=== PATIENT | female | born 1970 | race Caucasian/White ===

== ENCOUNTER 2017-07-15 10:30 | Day surgery (SDC) | payer BC, OTHER ==
[2017-07-15] MEDS ORDERED: Iopamidol 408 MG/ML 50 ML SDV ONE (11:30)
[2017-07-15] MEDS ORDERED: Betamethasone Acetate/Betamethasone Sod Phosphate 30 MG/5 ML MDV ONE (11:30)
[2017-07-15] MEDS ORDERED: Ropivacaine 0.5% 5 MG/ML 30 ML SDV ONE (11:30)
[2017-07-15] MEDS ORDERED: Lidocaine 2% 5 ML SDV ONE (11:30)
--- NOTE | 2017-07-15 20:23 | OR ---
SURGEON: Rachelle Davis D.O. DATE OF PROCEDURE: OR STAFF PRESENT: 1. Ángel Anthony RN. 2. Yoanna Rosas RN. PONY EDGER: RT Rosie. WOUND CLASSIFICATION: I. PREOPERATIVE DIAGNOSES: 1. Lumbar degenerative disk disease. 2. Lumbar radiculopathy. 3. Lumbar spondylosis. POSTOPERATIVE DIAGNOSES: 1. Lumbar degenerative disk disease. 2. Lumbar spondylosis. 3. Lumbar radiculopathy. 4. Lumbosacral transitional vertebrae. PROCEDURES PERFORMED: 1. Caudal epidural steroid injection. 2. Fluoroscopic guidance for needle placement. 3. Local with oral Valium for sedation. SCREENING QUESTIONS: The patient answered "no" to all of the following questions: 1. Are you allergic to latex? 2. Do you have a bleeding disorder? 3. Do you have any current local or systemic infections? 4. Are you taking any anti-inflammatories or blood thinners? 5. Do you have any joint replacements, heart valve replacements, or a pacemaker? DESCRIPTION OF PROCEDURE: The patient had the procedure thoroughly explained including all possible risks, benefits and alternatives. Consent was signed in my clinic indicating understanding and willingness to proceed. The patient presented to [facility] and was escorted to the dressing room to disrobe and change into a hospital gown. Preoperative vital signs were taken and stable. The patient reported that Valium was taken prior to the procedure. The patient was brought back to the procedure room and placed in the prone position on the procedure room table. A pillow was placed under the hips in order to flatten the lumbar lordosis. The back was prepped with ChloraPrep and sterilely draped. All personnel in the operating room were dressed in appropriate attire including surgical scrubs, head and shoe covers. This was to ensure sterility while in the treatment room. During the time fluoroscopy was in use, all personnel in the operating room wore lead zamudio with thyroid collars. Sterile technique was used throughout the procedure. The patient was awake and conversant throughout the procedure. There was no evidence of infection at the site of needle insertion. Skeletal landmarks were identified under fluoroscopy for the caudalepidural. Skin was anesthetized with 2% lidocaine with a sterile 27-gauge 1.5 inch needle. Then a 20-gauge Tuohy epidural needle was placed in the epidural space with loss of resistance technique under fluoroscopic guidance. No heme, cerebrospinal fluid, or paresthesias were noted. Isovue-200 contrast dye was injected in 0.2 cubic centimeter increments and seen to outline the epidural space in both AP and lateral views. There was no intravascular flow pattern observed under live fluoroscopy. Then 12 milligrams of Celestone and then 3 cc 0.5% ropivicaine, 3cc was slowly injected after negative aspiration. The patient tolerated the procedure well. Vital signs were stable during and after the procedure. The staff escorted the patient to the recovery area and the patient was released in stable condition after a brief stay in the recovery room monitored by the nurse. The patient was given both oral and written discharge and follow up instructions with recommendation to follow up given for 2-3 weeks. The patient voiced understanding including understanding of those signs and symptoms that would require emergency care. The patient knows how to contact the office if there are any additional problems or questions in the meantime. PREOPERATIVE PAIN: 6-7/10. POSTOPERATIVE PAIN: 3-4/10. FOLLOWUP: Follow up in the Pain Clinic in 1 month. TASHA / BETH /[id number] BETHANY
== END 2017-07-15 13:43 ==
LOC: MW.SDS 10:30
PROVIDERS: ATTEND Anesthesiology
DX: G89.4 Chronic pain syndrome (principal); M51.16 Intervertebral disc disorders with radiculopathy, lumbar region; M47.26 Other spondylosis with radiculopathy, lumbar region; M96.1 Postlaminectomy syndrome, not elsewhere classified; J44.9 Chronic obstructive pulmonary disease, unspecified; F32.9 Major depressive disorder, single episode, unspecified; F17.210 Nicotine dependence, cigarettes, uncomplicated; Z88.8 Allergy status to other drugs, medicaments and biological substances; Z79.891 Long term (current) use of opiate analgesic; Z79.899 Other long term (current) drug therapy; Z98.890 Other specified postprocedural states; Z00.00 Encounter for general adult medical examination without abnormal findings; M54.5 Low back pain; G89.29 Other chronic pain
CPT/HCPCS: 62323; 81025; J0702; J2795; Q9966

== ENCOUNTER → 2017-08-14 | Day surgery (SDC) | payer MEDICARE, BC ==
[~2017-08-14] MED LIST: Betamethasone Acetate/Betamethasone Sod Phosphate 30 MG/5 ML MDV ONE; Iopamidol 408 MG/ML 50 ML SDV ONE; Lidocaine 2% 5 ML SDV ONE; Ropivacaine 0.5% 5 MG/ML 30 ML SDV ONE
--- NOTE | 2017-08-14 20:02 | OR ---
SURGEON: Rachelle Davis D.O. DATE OF PROCEDURE: 08/14/2017 OR STAFF PRESENT: 1. Tammy Walker RN. 2. Letha Izaguirre RN. 3. Itz Velez RT. WOUND CLASSIFICATION: I. PREOPERATIVE DIAGNOSES: 1. Lumbar degenerative disk disease. 2. Chronic low back pain. 3. Spinal stenosis. 4. Lumbar radiculopathy. POSTOPERATIVE DIAGNOSES: 1. Lumbar degenerative disk disease. 2. Chronic low back pain. 3. Spinal stenosis. 4. Lumbar radiculopathy. PROCEDURES PERFORMED: 1. Caudal epidural steroid injection. 2. Fluoroscopic guidance for needle placement. 3. Local with oral Valium for sedation. SCREENING QUESTIONS: The patient answered "no" to all of the following questions: 1. Are you allergic to latex? 2. Do you have a bleeding disorder? 3. Do you have any current local or systemic infections? 4. Are you taking any anti-inflammatories or blood thinners? 5. Do you have any joint replacements, heart valve replacements, or a pacemaker? DESCRIPTION OF PROCEDURE: The patient had the procedure thoroughly explained including all possible risks, benefits and alternatives. Consent was signed in my clinic indicating understanding and willingness to proceed. The patient presented to [facility] and was escorted to the dressing room to disrobe and change into a hospital gown. Preoperative vital signs were taken and stable. The patient reported that Valium was taken prior to the procedure. The patient was brought back to the procedure room and placed in the prone position on the procedure room table. A pillow was placed under the hips in order to flatten the lumbar lordosis. The back was prepped with ChloraPrep and sterilely draped. All personnel in the operating room were dressed in appropriate attire including surgical scrubs, head and shoe covers. This was to ensure sterility while in the treatment room. During the time fluoroscopy was in use, all personnel in the operating room wore lead zamudio with thyroid collars. Sterile technique was used throughout the procedure. The patient was awake and conversant throughout the procedure. There was no evidence of infection at the site of needle insertion. Skeletal landmarks were identified under fluoroscopy for the caudal epidural. Skin was anesthetized with 2% lidocaine with a sterile 27-gauge 1.5 inch needle. Then a 20-gauge Tuohy epidural needle was placed in the epidural space with loss of resistance technique under fluoroscopic guidance. No heme, cerebrospinal fluid, or paresthesias were noted. Isovue-200 contrast dye was injected in 0.2 cubic centimeter increments and seen to outline the epidural space in both AP and lateral views. There was no intravascular flow pattern observed under live fluoroscopy. Then 12 milligrams of Celestone was slowly injected after negative aspiration. The patient tolerated the procedure well. Vital signs were stable during and after the procedure. The staff escorted the patient to the recovery area and the patient was released in stable condition after a brief stay in the recovery room monitored by the nurse. The patient was given both oral and written discharge and follow up instructions with recommendation to follow up given for 2-3 weeks. The patient voiced understanding including understanding of those signs and symptoms that would require emergency care. The patient knows how to contact the office if there are any additional problems or questions in the meantime. PREOPERATIVE PAIN: 5+/10. POSTOPERATIVE PAIN: Zero. FOLLOWUP: Follow up in the Pain Clinic in 3 weeks. TASHA / BETH /[id number] BETHANY
== END ==
LOC: MW.SDS 11:59
PROVIDERS: ATTEND Anesthesiology
DX: M51.16 Intervertebral disc disorders with radiculopathy, lumbar region (principal); M48.00 Spinal stenosis, site unspecified
CPT/HCPCS: 62323; J0702; J2795; Q9966

== ENCOUNTER 2018-06-15 06:54 | Day surgery (SDC) | payer MEDICARE, BC, OTHER ==
[~2018-06-15 06:54] MED LIST changes: -Betamethasone Acetate/Betamethasone Sod Phosphate 30 MG/5 ML MDV ONE; -Iopamidol 408 MG/ML 50 ML SDV ONE; -Lidocaine 2% 5 ML SDV ONE; -Ropivacaine 0.5% 5 MG/ML 30 ML SDV ONE; +Sodium Chloride 0.9% 1,000 ML IV SCH; +Sodium Chloride 0.9% 10 ML Syringe FLUSH PRN; +Sodium Chloride 0.9% 2.5 ML Syringe FLUSH PRN
[2018-06-15] MEDS ORDERED: ceFAZolin 2 GM in Premix Bag 1 BAG IV ONE (07:00)
[2018-06-15] MEDS ORDERED: Propofol 200 MG/20 ML SDV ONE (07:15)
[2018-06-15] MEDS ORDERED: fentaNYL 100 MCG/2 ML SDV ONE (07:15)
[2018-06-15] MEDS ORDERED: Midazolam 1 MG/ML 2 ML SDV ONE (07:15)
[2018-06-15] MEDS ORDERED: Ondansetron 4 MG/2 ML SDV ONE (07:15)
--- NOTE | 2018-06-15 07:22 | PCM.PREANE ---
Preanesthetic Assessment - Anesthesia/Transfusion/Family Hx Anesthesia History: Prior Anesthesia Without Reaction Other Type of Anesthesia Reaction Comment: "did not get me all the out for my C/ section" Family History of Anesthesia Reaction: No Transfusion History: No Prior Transfusion(s) Intubation History: Unknown - Review of Systems General: No Symptoms Pulmonary: No Symptoms Cardiovascular: No Symptoms Gastrointestinal: No Symptoms Neurological: No Symptoms Other: Reports: None - Physical Assessment Height: 1.66 m Weight: 83.461 kg ASA Class: 2 Mental Status: Alert & Oriented x3 Airway Class: Mallampati = 2 Dentition: Reports: Normal Dentition Thyro-Mental Finger Breadths: 3 Mouth Opening Finger Breadths: 2 ROM/Head Extension: Limited/Partial Lungs: Clear to Auscultation, Normal Respiratory Effort Cardiovascular: Regular Rate, Regular Rhythm - Allergies Allergies/Adverse Reactions: Allergies Allergy/AdvReac Type Severity Reaction Status Date / Time tramadol Allergy Hives Verified 06/11/18 09:05 - Blood Blood Available: No - Anesthesia Plan Pre-Op Medication Ordered: None - Acknowledgements Anesthesia Type Planned: General Anesthesia Pt an Appropriate Candidate for the Planned Anesthesia: Yes Alternatives and Risks of Anesthesia Discussed w Pt/Guardian: Yes Pt/Guardian Understands and Agrees with Anesthesia Plan: Yes PreAnesthesia Questionnaire HEENT History: Reports: None Cardiovascular History: Reports: Hypertension Respiratory History: Reports: COPD (mild), Other (See Below) (lung nodule discovered at [facility] 03/16, to be folloewd by x-ray in few months) Gastrointestinal History: Reports: GERD Genitourinary History: Reports: None 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: , Other (See Below) Other OB/BYN History: ETOPx2 Musculoskeletal History: Reports: Arthritis, Back Pain, Chronic, Neck Pain, Chronic Neurological History: Reports: None Psychiatric History: Reports: Anxiety, Depression Endocrine/Metabolic History: Reports: Obesity/BMI 30+ - Past Surgical History Head Surgeries/Procedures: Reports: None HEENT Surgical History: Reports: Oral Surgery GI Surgical History: Reports: Cholecystectomy Female Surgical History: Reports: Breast Biopsy, Section Neurological Surgical History: Reports: Lumbar Spine Other Neurological Surgeries/Procedures: spinal fusion x2, '14, '16 - SUBSTANCE USE Smoking Status *Q: Current Every Day Smoker (1/2 - 1 ppd) Tobacco Use Within Last Twelve Months: Cigarettes Recreational Drug Use History: No - HOME MEDS Home Medications: Home Meds Cyclobenzaprine HCl 10 mg PO TID PRN 06/11/18 [History] Hydrocodone/Acetaminophen [[place] 10-325 Tablet] 1 tab PO ASDIRECTED PRN [History] Lisinopril 10 mg PO BEDTIME 06/11/18 [History] Nicotine Polacrilex [Nicorette] 1 dose CHEW ASDIRECTED PRN 06/11/18 [History] Polyethylene Glycol 3350 [Miralax] 1 dose PO ASDIRECTED PRN 06/11/18 [History] Venlafaxine HCl [Venlafaxine HCl ER] 3 tab PO DAILY 06/11/18 [History] - CURRENT (IN HOUSE) MEDS Current Meds: Current Medications Cefazolin Sodium/Dextrose 2 gm (/ Premix) 50 mls @ 100 mls/hr IV ONETIME ONE Stop: 06/15/18 07:29 Sodium Chloride (Normal Saline) 1,000 mls @ 125 mls/hr IV ASDIRECTED FROY Sodium Chloride (Saline Flush) 10 ml FLUSH ASDIRECTED PRN PRN Reason: Keep Vein Open Sodium Chloride (Saline Flush) 2.5 ml FLUSH ASDIRECTED PRN PRN Reason: Keep Vein Open Discontinued Medications Fentanyl (Sublimaze) Confirm Administered Dose 100 mcg .ROUTE .STK-MED ONE Stop: 06/15/18 07:16 Lidocaine HCl (Xylocaine-Mpf 1%) Confirm Administered Dose 5 mls @ as directed .ROUTE .STK-MED ONE Stop: 06/15/18 07:16 Midazolam HCl (Versed 1 Mg/Ml) Confirm Administered Dose 2 mg .ROUTE .STK-MED ONE Stop: 06/15/18 07:16 Ondansetron HCl (Zofran) Confirm Administered Dose 4 mg .ROUTE .STK-MED ONE Stop: 06/15/18 07:16 Propofol (Diprivan 20 Ml) Confirm Administered Dose 200 mg .ROUTE .STK-MED ONE Stop: 06/15/18 07:16
[2018-06-15] MEDS ORDERED: ceFAZolin/Dextrose,Iso-Osmotic 2 GM/50 ML Duplex Bag IV ONE (08:15)
[2018-06-15] MEDS ORDERED: Ketorolac 15 MG/ML SDV IVPUSH ONE (09:06)
[2018-06-15] MEDS ORDERED: Ketorolac 30 MG/ML SDV ONE (09:09)
--- NOTE | 2018-06-15 09:11 | PCM.OPNOTE ---
- General Post-Op/Procedure Note Date of Surgery/Procedure: 06/15/18 Operative Procedure(s): Endometrial ablation Findings: 8 weeks sized uterus, sounded to 9cm. Normal appearing cervix. No adnexal masses palpable Pre Op Diagnosis: Menorrhagia Post-Op Diagnosis: Same Anesthesia Technique: General LMA Primary Surgeon: Lorraine Will Anesthesia Provider: Zaira Medina Fluid Replacement, Intraop: 500 EBL in mLs: 0 Complications: None Condition: Good
--- NOTE | 2018-06-15 09:18 | PCM.POSTAN ---
POST ANESTHESIA ASSESSMENT - MENTAL STATUS Mental Status: Alert, Oriented - RESPIRATORY Respiratory Status: Respiratory Rate WNL, Airway Patent, O2 Saturation Stable - CARDIOVASCULAR CV Status: Pulse Rate WNL, Blood Pressure Stable - GASTROINTESTINAL GI Status: No Symptoms - PAIN Pain Score: 1 - POST OP HYDRATION Hydration Status: Adequate & Stable - OBSERVATIONS Free Text/Narrative:: no anesthesia problems
[2018-06-15] MEDS ORDERED: Acetaminophen/oxyCODONE 325-7.5 MG Tab PO ONE (09:57)
[2018-06-15] MEDS: fentaNYL 100 MCG/2 ML SDV IVPUSH PRN ×2 (10:06→10:47)
[2018-06-15] MEDS ORDERED: Acetaminophen/oxyCODONE 325-5 MG Tab PO ONE (10:30)
[2018-06-15 14:21] VITALS: BP 175/98
--- NOTE | 2018-06-15 16:21 | OR ---
SURGEON: Lorraine Will MD DATE OF PROCEDURE: PREOPERATIVE DIAGNOSIS: Menorrhagia. POSTOPERATIVE DIAGNOSIS: Menorrhagia. PROCEDURE: Endometrial ablation with Samantha. ANESTHESIA: General LMA. ESTIMATED BLOOD LOSS: None. FINDINGS: Mobile, anteverted uterus 8 weeks size, sounded to 9 cm. No cervical lesions or palpable adnexal masses. COMPLICATIONS: None. DISPOSITION: Stable to recovery room. BRIEF HISTORY: The patient is a 47-year-old lady with a history of irregular menstrual cycles with heavy periods. Evaluation in the office was negative including a pelvic sonogram and benign proliferative endometrial biopsy on Pipelle sampling. She had a recent Pap smear, which was consistent with endometrial tissue and colposcopy-directed biopsies was consistent with chronic cervicitis, no dysplasia was noted. After extensive discussion with the patient, on various management for menorrhagia, she opted to have an endometrial ablation. The risks were discussed with her including but not limited to bleeding, infection and uterine injury. She understands that ablation does not provide a contraception and has an increased risk of masking of further endometrial premalignant or malignant pathologies. After understanding these risks, she opted to proceed and an appropriate consent was obtained. DESCRIPTION OF PROCEDURE: The patient was taken to the operating room where induction of general anesthesia was performed without difficulty. After adequate level of anesthesia, she was placed in dorsal lithotomy position, prepped and draped in usual sterile fashion for vaginal surgery. The bladder was emptied. Examination under anesthesia revealed the aforementioned findings. A bivalve speculum was placed in the vagina and the anterior lip of the cervix was grabbed with an Allis clamp. The uterus was sounded to a depth of 9 cm. The os was serially dilated up to #8 Hegar dilator. The Samantha machine was then set up and primed according to the complex director's guidelines. Subtracting the cervical length from the uterine length, the Samantha handpiece was then set at [address] in [address]. The handpiece was then gently inserted into the endometrial cavity. Once the tip reached the uterine fundus, it was slightly withdrawn and handpiece was deployed. The opening array indicator was noted to be in the green zone. The cervical sealing balloon was then inflated and the uterine integrity test was successful. The ablation cycle was then completed for a total of 120 seconds. The handpiece was then removed. The instruments were then removed from the patient's vagina. The site of the Allis clamp on the cervix was noted to be hemostatic. The patient was taken to the recovery room in stable condition. MERCY CAMPOS /[id number] MTDD
== END 2018-06-15 12:05 | disposition home or self-care (01) ==
LOC: MW.SDS 06:54
PROVIDERS: ATTEND Obstetrics & Gynecology
DX: N92.1 Excessive and frequent menstruation with irregular cycle (principal); I10 Essential (primary) hypertension; J44.9 Chronic obstructive pulmonary disease, unspecified; E66.9 Obesity, unspecified; Z68.30 Body mass index [BMI] 30.0-30.9, adult; F17.210 Nicotine dependence, cigarettes, uncomplicated; K21.9 Gastro-esophageal reflux disease without esophagitis; F41.9 Anxiety disorder, unspecified; F32.9 Major depressive disorder, single episode, unspecified; Z79.899 Other long term (current) drug therapy; Z88.5 Allergy status to narcotic agent
CPT/HCPCS: 36415; 58353; 81025; 85027; A9270; J0690; J1885; J2250; J2405; J2704; J3010; J7040

== ENCOUNTER 2019-01-19 08:07 | Day surgery (SDC) | payer MEDICARE, BC, OTHER ==
[~2019-01-19 08:07] MED LIST changes: +Lactated Ringers 1,000 ML IV SCH; -Sodium Chloride 0.9% 1,000 ML IV SCH; +Sodium Chloride 0.9% 10 ML SDV IV PRN
--- NOTE | 2019-01-19 09:35 | PCM.PREANE ---
Preanesthetic Assessment - Anesthesia/Transfusion/Family Hx Anesthesia History: Prior Anesthesia Without Reaction Other Type of Anesthesia Reaction Comment: states "they did not put me all the way out for my c/section" Transfusion History: No Prior Transfusion(s) Intubation History: Unknown - Review of Systems General: No Symptoms Pulmonary: No Symptoms Cardiovascular: No Symptoms Gastrointestinal: No Symptoms Neurological: No Symptoms - Physical Assessment NPO Status Date: 01/18/19 Height: 1.63 m Weight: 87.997 kg ASA Class: 2 Mental Status: Alert & Oriented x3 Dentition: Reports: Normal Dentition ROM/Head Extension: Limited/Partial Lungs: Clear to Auscultation, Normal Respiratory Effort Cardiovascular: Regular Rate, Regular Rhythm - Lab Values: Laboratory Last Values Urine HCG, Qual NEGATIVE (NEGATIVE) 01/19/19 08:40 - Allergies Allergies/Adverse Reactions: Allergies Allergy/AdvReac Type Severity Reaction Status Date / Time tramadol Allergy Hives Verified 01/13/19 11:21 - Acknowledgements Anesthesia Type Planned: MAC Pt an Appropriate Candidate for the Planned Anesthesia: Yes Alternatives and Risks of Anesthesia Discussed w Pt/Guardian: Yes Pt/Guardian Understands and Agrees with Anesthesia Plan: Yes PreAnesthesia Questionnaire HEENT History: Reports: None Cardiovascular History: Reports: Hypertension Respiratory History: Reports: COPD, Other (See Below) Other Respiratory History: "start of COPD" Gastrointestinal History: Reports: None Genitourinary History: Reports: None 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: , Other (See Below) Other OB/BYN History: ETOPx2, C/S x2 Musculoskeletal History: Reports: Arthritis, Back Pain, Chronic (lumbar back pain 5/10), Neck Pain, Chronic (preop pain score 3/10) Neurological History: Reports: None Psychiatric History: Reports: Anxiety, Depression Endocrine/Metabolic History: Reports: Obesity/BMI 30+ Hematologic History: Reports: None Immunologic History: Reports: None Oncologic (Cancer) History: Reports: None Dermatologic History: Reports: None - Past Surgical History Head Surgeries/Procedures: Reports: None HEENT Surgical History: Reports: Oral Surgery Cardiovascular Surgical History: Reports: None Respiratory Surgical History: Reports: None GI Surgical History: Reports: Cholecystectomy Female Surgical History: Reports: Breast Biopsy, Section, Endometrial Ablation Endocrine Surgical History: Reports: None Neurological Surgical History: Reports: C-Spine Other Neurological Surgeries/Procedures: neck surgery x2 Musculoskeletal Surgical History: Reports: None Oncologic Surgical History: Reports: Biopsy of Breast Dermatological Surgical History: Reports: None - SUBSTANCE USE Smoking Status *Q: Current Every Day Smoker Tobacco Use Within Last Twelve Months: Cigarettes Days Per Week of Alcohol Use: 0 (occasional etoh) Recreational Drug Use History: No - HOME MEDS Home Medications: Home Meds Cyclobenzaprine HCl 10 mg PO TID PRN 06/11/18 [History] Hydrocodone/Acetaminophen [[place] 10-325 Tablet] 1 tab PO ASDIRECTED PRN [History] Lisinopril 10 mg PO BEDTIME 06/11/18 [History] Polyethylene Glycol 3350 [Miralax] 1 dose PO ASDIRECTED PRN 06/11/18 [History] Venlafaxine HCl [Venlafaxine HCl ER] 3 tab PO DAILY 06/11/18 [History] Diclofenac Sodium [Voltaren 1% Gel] 1 applic TOP ASDIRECTED PRN 01/13/19 [ History] [place] & Stretch 1 spray TOP TID PRN 01/13/19 [History] LORazepam 1 tab PO ASDIRECTED PRN 01/13/19 [History] - CURRENT (IN HOUSE) MEDS Current Meds: Current Medications Lactated Ringer's (Ringers, Lactated) 1,000 mls @ 125 mls/hr IV ASDIRECTED FROY Lactated Ringer's (Ringers, Lactated) 1,000 mls @ 125 mls/hr IV ASDIRECTED FROY Sodium Chloride (Saline Flush) 10 ml FLUSH ASDIRECTED PRN PRN Reason: Keep Vein Open Sodium Chloride (Saline Flush) 2.5 ml FLUSH ASDIRECTED PRN PRN Reason: Keep Vein Open Sodium Chloride (Saline Flush) 10 ml FLUSH ASDIRECTED PRN PRN Reason: Keep Vein Open Sodium Chloride (Saline Flush) 2.5 ml FLUSH ASDIRECTED PRN PRN Reason: Keep Vein Open Sodium Chloride (Normal Saline) 10 ml IV ASDIRECTED PRN PRN Reason: IV Use Sodium Chloride (Saline Flush) 10 ml FLUSH ASDIRECTED PRN PRN Reason: Keep Vein Open Sodium Chloride (Saline Flush) 2.5 ml FLUSH ASDIRECTED PRN PRN Reason: Keep Vein Open Sodium Chloride (Normal Saline) 10 ml IV ASDIRECTED PRN PRN Reason: IV Use
[2019-01-19] MEDS ORDERED: Midazolam 1 MG/ML 2 ML SDV ONE ×2 (09:50→10:07)
[2019-01-19] MEDS ORDERED: Lidocaine 2% 5 ML SDV ONE ×2 (09:50→10:07)
[2019-01-19] MEDS ORDERED: Propofol 200 MG/20 ML SDV ONE ×2 (09:50→10:07)
[2019-01-19] MEDS ORDERED: fentaNYL 100 MCG/2 ML SDV ONE ×2 (09:50→10:07)
[2019-01-19] MEDS ORDERED: Glycopyrrolate 0.2 MG/ML SDV ONE (10:34)
--- NOTE | 2019-01-19 10:47 | PCM.OPNOTE ---
- General Post-Op/Procedure Note Date of Surgery/Procedure: 01/19/19 Operative Procedure(s): diagnostic colonoscopy Findings: sigmoid polyp Pre Op Diagnosis: change in bowel habits Post-Op Diagnosis: sigmoid polyp Anesthesia Technique: MAC Primary Surgeon: Yenni Leonardo Pathology: sigmoid polyp EBL in mLs: 0 Condition: Good
--- NOTE | 2019-01-19 11:11 | PCM.POSTAN ---
POST ANESTHESIA ASSESSMENT - MENTAL STATUS Mental Status: Alert, Oriented - RESPIRATORY Respiratory Status: Respiratory Rate WNL, Airway Patent, O2 Saturation Stable - CARDIOVASCULAR CV Status: Pulse Rate WNL, Blood Pressure Stable - GASTROINTESTINAL GI Status: No Symptoms - OBSERVATIONS Free Text/Narrative:: The patient tolerated the procedure well. There were no apparent anesthetic complications at this time.
--- NOTE | 2019-01-19 11:43 | PCM48HPAN ---
Post Anesthesia Note - EVALUATION WITHIN 48HRS OF ANESTHETIC Vital Signs in Normal Range: Yes Patient Participated in Evaluation: Yes Respiratory Function Stable: Yes Airway Patent: Yes Cardiovascular Function Stable: Yes Hydration Status Stable: Yes Pain Control Satisfactory: Yes Nausea and Vomiting Control Satisfactory: Yes Mental Status Recovered: Yes Resp Rate: 12 - COMMENTS/OBSERVATIONS Free Text/Narrative:: The patient has no complaints at this time, and wants to go home. Discharge to home per criteria.
[2019-01-19 12:51] VITALS: BP 114/53
--- NOTE | 2019-01-19 18:25 | OR ---
SURGEON: YENNI LEONARDO MD DATE OF PROCEDURE: 01/19/2019 PREOPERATIVE DIAGNOSIS: Change in bowel habits. POSTOPERATIVE DIAGNOSIS: Sigmoid colon polyp. PROCEDURE PERFORMED: Diagnostic colonoscopy. ENDOSCOPIST: Yenni Leonardo MD. ANESTHESIA: MAC. INSTRUMENT USED: Olympus colonoscope. EXTENT OF EXAM: To the cecum. PREPARATION: Good. LIMITATIONS: None. INDICATION FOR EXAMINATION: The patient is a 48-year-old female who presents with some changes in her bowel habits. I explained the need for colonoscopy. The patient and I discussed the procedure, expected perioperative course, and risks including bleeding, infection, or damage to surrounding structures including perforation. The patient verbalized understanding and wishes to proceed. PROCEDURE IN DETAIL: The patient was brought into the endoscopy suite and placed in the left lateral decubitus position. A time-out was completed verifying the patient's name, age, date of , allergies, and procedure to be performed. Monitored anesthesia care was induced and continuous oxygen was provided via nasal cannula throughout the procedure. After adequate sedation was achieved, a digital rectal exam was performed. This exam was within normal limits. A well lubricated colonoscope was inserted into the rectum and advanced under direct visualization to the level of the cecum. The cecum was identified by both visual and anatomic landmarks. A photograph was taken of the cecal cap as well as with the scope retroflexed within the cecum. The scope was then straightened out and fully withdrawn while examining the color, texture, anatomy, and integrity of the mucosa from the cecum to the anal canal. The patient was found to have a small polyp within the distal sigmoid colon. This was removed in piecemeal fashion using a cold biopsy forceps. The scope was then brought into the rectum and retroflexed to allow visualization of the anal canal opening. This appeared normal and a photograph was taken. The scope was then straightened out and fully withdrawn. The cecum to anus time was 12 minutes. The patient tolerated the procedure well and was taken to PACU in stable condition. ENDOSCOPIC DIAGNOSIS: Sigmoid colon polyp. RECOMMENDATIONS: Follow up in clinic in 2 weeks. GWEN CAMPOS /[id number]
== END 2019-01-19 11:50 | disposition home or self-care (01) ==
LOC: MW.SDS 08:07
PROVIDERS: ATTEND Surgery
DX: K63.5 Polyp of colon (principal); K62.5 Hemorrhage of anus and rectum; K59.09 Other constipation; I10 Essential (primary) hypertension; J44.9 Chronic obstructive pulmonary disease, unspecified; F41.9 Anxiety disorder, unspecified; F32.9 Major depressive disorder, single episode, unspecified; F17.210 Nicotine dependence, cigarettes, uncomplicated; Z88.5 Allergy status to narcotic agent; Z79.899 Other long term (current) drug therapy
CPT/HCPCS: 45380; 81025; J2001; J2250; J2704; J3010; J3490; J7120; 88305

== ENCOUNTER 2020-04-11 11:27 | Day surgery (SDC) | payer MEDICARE, OTHER ==
[2020-04-11] MEDS ORDERED: Propofol 200 MG/20 ML SDV ONE (12:14)
--- NOTE | 2020-04-11 12:31 | PCM.PREANE ---
Preanesthetic Assessment - Anesthesia/Transfusion/Family Hx Anesthesia History: Prior Anesthesia Reaction Other Type of Anesthesia Reaction Comment: awake during C/S Family History of Anesthesia Reaction: No Transfusion History: No Prior Transfusion(s) Intubation History: Unknown - Review of Systems General: No Symptoms Pulmonary: No Symptoms Cardiovascular: No Symptoms Gastrointestinal: No Symptoms Neurological: No Symptoms Other: Reports: None - Physical Assessment Vital Signs: Last Vital Signs Temp 36.2 C 04/11/20 11:44 Pulse 70 04/11/20 11:44 Resp 16 04/11/20 11:44 BP 156/82 H 04/11/20 11:44 Pulse Ox 96 04/11/20 11:44 Height: 5 ft 5.5 in Weight: 86.636 kg ASA Class: 2 Mental Status: Alert & Oriented x3 Airway Class: Mallampati = 2 Dentition: Reports: Normal Dentition Thyro-Mental Finger Breadths: 3 Mouth Opening Finger Breadths: 3 ROM/Head Extension: Full Lungs: Clear to Auscultation, Normal Respiratory Effort Cardiovascular: Regular Rate, Regular Rhythm - Allergies Allergies/Adverse Reactions: Allergies Allergy/AdvReac Type Severity Reaction Status Date / Time tramadol Allergy Hives Verified 04/07/20 10:13 - Blood Blood Available: No - Anesthesia Plan Pre-Op Medication Ordered: None - Acknowledgements Anesthesia Type Planned: MAC Pt an Appropriate Candidate for the Planned Anesthesia: Yes Alternatives and Risks of Anesthesia Discussed w Pt/Guardian: Yes Pt/Guardian Understands and Agrees with Anesthesia Plan: Yes PreAnesthesia Questionnaire HEENT History: Reports: None Cardiovascular History: Reports: Hypertension Respiratory History: Reports: COPD Other Respiratory History: Very mild, does not take any medications Gastrointestinal History: Reports: Colon Polyp Genitourinary History: Reports: None 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 OB/BYN History: ETOPx2, C/S x2 Musculoskeletal History: Reports: Arthritis, Back Pain, Chronic, Neck Pain, Chronic, Other (See Below) (chronic pain syndrome) Neurological History: Reports: Headaches, Chronic, Other (See Below) Other Neuro History: degenerative disc disease Psychiatric History: Reports: Anxiety, Depression, PTSD Endocrine/Metabolic History: Reports: Obesity/BMI 30+ (BMI 31.3) Hematologic History: Reports: None Immunologic History: Reports: None Oncologic (Cancer) History: Reports: None Dermatologic History: Reports: None - Past Surgical History Head Surgeries/Procedures: Reports: None GI Surgical History: Reports: Cholecystectomy, Colonoscopy Female Surgical History: Reports: Breast Biopsy, Section Other Female Surgeries/Procedures: x2 Neurological Surgical History: Reports: C-Spine, Spinal Fusion Other Neurological Surgeries/Procedures: spinal fusion C2-T1, has hardware - SUBSTANCE USE Smoking Status *Q: Former Smoker Tobacco Use Within Last Twelve Months: Cigarettes Recreational Drug Use History: No - HOME MEDS Home Medications: Home Meds Cyclobenzaprine HCl 10 mg PO TID PRN 06/11/18 [History] Hydrocodone/Acetaminophen [[place] 10-325 Tablet] 1 tab PO ASDIRECTED PRN 06/11/18 [History] Lisinopril 10 mg PO BEDTIME 06/11/18 [History] Diclofenac Sodium [Voltaren 1% Gel] 1 applic TOP ASDIRECTED PRN 01/13/19 [History] Gabapentin [Neurontin] 300 mg PO TID PRN 04/07/20 [History] Venlafaxine HCl [Venlafaxine HCl ER] 37.5 mg PO TID 04/07/20 [History] - CURRENT (IN HOUSE) MEDS Current Meds: Current Medications Lidocaine HCl (Xylocaine-Mpf 1%) 10 ml INJECT ONETIME ONE Stop: 04/11/20 13:01 Discontinued Medications Propofol (Diprivan 20 Ml) Confirm Administered Dose 400 mg .ROUTE .STK-MED ONE Stop: 04/11/20 12:15
[2020-04-11] MEDS ORDERED: Lidocaine 2% 5 ML SDV ONE (12:51)
[2020-04-11] MEDS ORDERED: fentaNYL 100 MCG/2 ML SDV ONE (13:04)
[2020-04-11] MEDS ORDERED: Midazolam 1 MG/ML 2 ML SDV ONE (13:04)
[2020-04-11] MEDS ORDERED: Sodium Chloride 0.9% 20 ML ONE (13:17)
[2020-04-11] MEDS ORDERED: ceFAZolin 1 GM Vial ONE (13:17)
[2020-04-11] MEDS ORDERED: Lactated Ringers 1,000 ML IV SCH (13:45)
[2020-04-11 14:59] VITALS: BP 138/77; PULSE 59
--- NOTE | 2020-04-11 15:04 | PCM48HPAN ---
Post Anesthesia Note - EVALUATION WITHIN 48HRS OF ANESTHETIC Vital Signs in Normal Range: Yes Patient Participated in Evaluation: Yes Respiratory Function Stable: Yes Airway Patent: Yes Cardiovascular Function Stable: Yes Hydration Status Stable: Yes Pain Control Satisfactory: Yes Nausea and Vomiting Control Satisfactory: Yes Mental Status Recovered: Yes Vital Signs: Last Vital Signs Temp 36.0 C L 04/11/20 14:20 Pulse 59 L 04/11/20 14:40 Resp 14 04/11/20 14:40 BP 138/77 04/11/20 14:40 Pulse Ox 99 04/11/20 14:40
--- NOTE | 2020-04-11 15:04 | PCM.POSTAN ---
POST ANESTHESIA ASSESSMENT - MENTAL STATUS Mental Status: Alert - VITAL SIGNS Vital Signs: Last Vital Signs Temp 36.0 C L 04/11/20 14:20 Pulse 59 L 04/11/20 14:40 Resp 14 04/11/20 14:40 BP 138/77 04/11/20 14:40 Pulse Ox 99 04/11/20 14:40 - RESPIRATORY Respiratory Status: Respiratory Rate WNL - CARDIOVASCULAR CV Status: Pulse Rate WNL - GASTROINTESTINAL GI Status: No Symptoms - POST OP HYDRATION Hydration Status: Adequate & Stable
--- NOTE | 2020-04-11 17:04 | OR ---
SURGEON: Rachelle Davis D.O. DATE OF PROCEDURE: 04/11/2020 PRIMARY SURGEON: Rachelle Davis DO ASSISTANTS: OR staff present: 1. Donovan Izaguirre. 2. Tanja Sheikh. ANESTHESIA: Monitored anesthesia care; Donovan Rosa CRNA PREOPERATIVE DIAGNOSES: 1. Chronic lumbar radiculopathy. 2. Chronic neuropathic pain. POSTOPERATIVE DIAGNOSES: 1. Chronic lumbar radiculopathy. 2. Chronic neuropathic pain. PROCEDURE PERFORMED: 1. A [employer] 50 cm, 16 contact electrode spinal cord stimulator trial lead placed to the top of T6 on the left. 2. A [employer] 50 cm, 16 contact electrode spinal cord stimulator lead placed to the top of T6 on the right. 2. Fluoroscopic guidance for needle placement. SCREENING QUESTIONS: The patient answered no to all the following questions: 1. Are you allergic to iodine, Betadine, or latex? 2. Do you have a bleeding disorder? 3. Are you on anti-inflammatories or blood thinners? 4. Are you ? 5. Do you have any current local or systemic infections? 6. Do you have any joint replacements, heart valve replacements or a pacemaker? DESCRIPTION OF PROCEDURE: The patient had the procedure thoroughly explained including risks, benefits, and alternatives. Consent was signed in my clinic indicating understanding and willingness to proceed. The patient presented to [facility] and was escorted to the dressing room to disrobe and change into a hospital gown. Preoperative history and screening were performed by the nurse. Vital signs were taken and stable. The patient was set up with an IV prior to the procedure. The patient was brought back to the procedure room and placed in the prone position on the procedure room table. A pillow was placed under the abdomen in order to flatten the lumbar lordosis. The patient was positioned comfortably and there was no evidence of infection at the sites of needle insertion. The back was prepped with ChloraPrep and sterilely draped. All personnel in the operating room were dressed in appropriate attire including surgical scrubs, head and shoe covers. This was to ensure sterility while in the treatment room. During the time fluoroscopy was in use, all personnel in the operating room wore lead zamudio with thyroid collars. Sterile technique was used during the procedure. Prior to the start of the procedure, prophylactic antibiotic was administered IV. Skeletal landmarks were identified under fluoroscopic guidance. At all insertion sites, the skin and soft tissues were anesthetized with 2% lidocaine preservative-free with a sterile 27-gauge 1-1/2 inch needle. The epidural space was entered with a 14-gauge Tuohy epidural needle with loss-of- resistance technique. Under live fluoroscopic guidance,in both AP and lateral positions, the 16 standard [employer] contact lead electrodes were advanced approximately to the midline at the top of the T6 vertebral body on the left and then the right. No CSF, no heme, no paresthesia were noted. Testing by the neuromodulation clinical specialist revealed appropriate coverage of the patient's normal areas of pain. The leads were then secured to the skin with occlusive dressing. No complications were noted throughout the procedure and vital signs were stable. Then the patient was brought to the recovery room in stable condition. At that time, the patient had additional stimulation patterns programmed which covered all the normal areas of pain. The patient tolerated the procedure well and was released home with postoperative instructions for followup in the clinic. The patient will fill out a pain diary throughout the week of the spinal cord stimulator trial. Additionally, prior to discharge, postoperative instructions were given to the patient and the patient voiced understanding, including understanding of those signs and symptoms that would require emergency care. PREOPERATIVE PAIN: 8/10. POSTOPERATIVE PAIN: 2/10. FOLLOWUP: In the Pain Clinic in 1 day for reprogramming. TASHA / BETH /[id number] BETHANY
== END 2020-04-11 15:00 | disposition home or self-care (01) ==
LOC: MW.SDS 11:27
PROVIDERS: ATTEND Anesthesiology
DX: G89.4 Chronic pain syndrome (principal); M51.16 Intervertebral disc disorders with radiculopathy, lumbar region; M51.17 Intervertebral disc disorders with radiculopathy, lumbosacral region; G62.9 Polyneuropathy, unspecified; M96.1 Postlaminectomy syndrome, not elsewhere classified; J44.9 Chronic obstructive pulmonary disease, unspecified; F32.9 Major depressive disorder, single episode, unspecified; M48.062 Spinal stenosis, lumbar region with neurogenic claudication; Q76.49 Other congenital malformations of spine, not associated with scoliosis; I10 Essential (primary) hypertension; M19.90 Unspecified osteoarthritis, unspecified site; F41.9 Anxiety disorder, unspecified; E66.9 Obesity, unspecified; F43.10 Post-traumatic stress disorder, unspecified; Z88.8 Allergy status to other drugs, medicaments and biological substances; Z79.891 Long term (current) use of opiate analgesic; Z79.899 Other long term (current) drug therapy; Z68.31 Body mass index [BMI] 31.0-31.9, adult; Z98.1 Arthrodesis status; Z87.891 Personal history of nicotine dependence
CPT/HCPCS: 63650; C1778; J0690; J2001; J2250; J2704; J3010; J7120

== ENCOUNTER 2021-05-14 12:14 | Observation (INO) | payer MEDICARE, OTHER ==
[2021-05-14] MEDS ORDERED: Sodium Chloride 0.9% 2.5 ML Syringe FLUSH PRN (12:17)
[2021-05-14] MEDS ORDERED: Sodium Chloride 0.9% 10 ML SDV IV PRN (12:17)
[2021-05-14] MEDS ORDERED: Sodium Chloride 0.9% 10 ML Syringe FLUSH PRN (12:17)
[2021-05-14 13:08] LABS: BLOOD UREA NITROGEN,BUN 15 mg/dL (7.0-18.0); CARBON DIOXIDE,CO2 24.3 mmol/L (21.0-32.0); CHLORIDE,CL 100 mmol/L (98-107); GLUCOSE RANDOM 121 mg/dL (74-106); POTASSIUM,K 4.6 mmol/L (3.5-5.1); SODIUM,NA 136 mmol/L (136-145)
--- NOTE | 2021-05-14 13:15 | CT ---
INDICATION: Acute stroke. TECHNIQUE: After standard noncontrast head CT, high resolution axial CT images acquired through the head and neck following rapid intravenous administration of iodinated contrast. Multiplanar MIPS of cranial and cervical vasculature performed. FINDINGS: Noncontrast head CT: There is no intracranial hemorrhage or fluid collection. The cespedes-white matter differentiation is maintained. The ventricles are of normal morphology. The basal cisterns are clear. CTA head: There is normal filling of the intracranial vasculature; i.e. there is no large vessel occlusion or significant intracranial stenosis. There is no cerebral aneurysm or evidence for vascular malformation. CTA neck: Carotid arteries: There is minor atherosclerotic plaque in the proximal ICA without stenosis. There is a kink in the distal carotid artery on the right, related to tortuosity. There is no significant stenosis by NASCET criteria. There is no evidence for dissection. Vertebral arteries: There is no significant stenosis. There is no evidence for dissection. The soft tissues of the neck are within normal limits. There has been an extensive cervical fusion procedure. The lung apices are clear. IMPRESSION: No acute intracranial abnormality at CT/CTA. No significant carotid or vertebral artery stenosis or dissection. Uche Pittman MD Neurointerventional Radiologist [facility] Please note that all CT scans at this facility use dose modulation, iterative reconstruction, and/or weight-based dosing when appropriate to reduce radiation dose to as low as reasonably achievable. Dictated by Uche Pittman MD @ 05/14/2021 1:13:[address] Uche Pittman @ May 14 2021 1:13PM
[2021-05-14] MEDS ORDERED: Iopamidol 755 MG/ML 500 ML Multipack Bottle IVPUSH STA (13:59)
[2021-05-14] MEDS ORDERED: Acetaminophen/HYDROcodone 325-10 MG Tab PO ONE (14:34)
[2021-05-14] MEDS ORDERED: Gabapentin 300 MG Cap PO ONE (14:34)
[2021-05-14] MEDS ORDERED: Cyclobenzaprine 10 MG Tab PO ONE (14:34)
--- NOTE | 2021-05-14 15:01 | PCM.HP.2 ---
H&P History of Present Illness - General Date of Service: 05/14/21 Admit Problem/Dx: Admission Diagnosis/Problem Admission Diagnosis/Problem TIA, Transient ischemic attack - History of Present Illness Initial Comments - Free Text/Narative: 50-year-old female with a history of hypertension, obesity, COPD presents to the ED complaining of episodes of blurry vision. Last episode started this morning and was associated with tingling in her right arm and leg. Her noticed she was not finishing her sentences and having difficulty with speech. Also complains of a frontal headache for 4 days. She has had double vision episodes since January. She denies loss of vision, dysphagia, difficulty walking or loss of consciousness. No previous history of stroke or TIA. Patient does endorse a history of angina. Denies current chest pain, palpitations, abdominal pain. No anticoagulation use. Risk factors include history of hypertension, angina, hyperlipidemia, smoking history and positive family history of stroke. ER Course: Temperature 96.9. Pulse 86. Blood pressure 183/92. Respiratory rate 20. 98% on room air. WBC 8.97. Hgb 15.7. Platelet 314. INR 0.95. PTT 24.5. Sodium 136. Potassium 4.6. Chloride 100. Bicarb 24.3. BUN 15. Creatinine 0.9. Glucose 121. AST 61. Alk phos 119. Total protein 8.4. TSH 1.59. Urinalysis unremarkable. Neck/head CT angio: No acute intracranial abnormality. No significant carotid or vertebral artery stenosis or dissection. CT head: No intracranial abn ormality. MRI brain pending. Past medical history: HTN, COPD, chronic back pain, obesity, anxiety, depression, PTSD. Denies history of DM. Medications: Lisinopril 10 mg daily. Desvenlafaxine 50 mg daily. Gabapentin 600mg bid prn. Cyclobenzaprine 10 mg TID prn. Voltaren gel. [place] (Hydrocodo ne/Acetaminophen) 10-325 tab bid prn. Chantix 1mg bid. Allergies: Tramadol Past surgical history: Spinal fusion C2-T1 with hardware. Colonoscopy 2019. 16 contact electrode spinal cord stimulator trial lead placed to the top of T6. Family history: Mom had stroke in her 50's. Father with CAD and PR in his 50's. Brother had PR in his 40's. Brain cancer. CHF. COPD. Schizophrenia. Social history: History of smoking 1ppd x 30+ years. Quit this year, recently started on Chantix. Denies alcohol use. Has a medical marijuana card, last used 2 months ago. Lives at home with her . CODE STATUS: Full code. Head Pain Score (Numeric/FACES): 4 - Related Data Allergies/Adverse Reactions: Allergies Allergy/AdvReac Type Severity Reaction Status Date / Time tramadol Allergy Hives Verified 05/14/21 12:23 Home Medications: Home Meds Cyclobenzaprine HCl 10 mg PO TID PRN 06/11/18 [History] Hydrocodone/Acetaminophen [[place] 10-325 Tablet] 1 tab PO ASDIRECTED PRN 06/11/18 [History] Lisinopril 10 mg PO BEDTIME 06/11/18 [History] Diclofenac Sodium [Voltaren 1% Gel] 1 applic TOP ASDIRECTED PRN 01/13/19 [History] Gabapentin [Neurontin] 300 mg PO BID PRN 04/07/20 [History] Venlafaxine HCl [Venlafaxine HCl ER] 50 mg PO TID 04/07/20 [History] Past Medical History HEENT History: Reports: None Cardiovascular History: Reports: Hypertension Respiratory History: Reports: COPD Other Respiratory History: Very mild, does not take any medications Gastrointestinal History: Reports: Colon Polyp Genitourinary History: Reports: None 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 OB/BYN History: ETOPx2, C/S x2 Musculoskeletal History: Reports: Arthritis, Back Pain, Chronic, Neck Pain, Chronic, Other (See Below) Neurological History: Reports: Headaches, Chronic, Other (See Below) Other Neuro History: degenerative disc disease Psychiatric History: Reports: Anxiety, Depression, PTSD Endocrine/Metabolic History: Reports: Obesity/BMI 30+ Hematologic History: Reports: None Immunologic History: Reports: None Oncologic (Cancer) History: Reports: None Dermatologic History: Reports: None - Infectious Disease History Infectious Disease History: Reports: Chicken Pox - Past Surgical History Head Surgeries/Procedures: Reports: None HEENT Surgical History: Reports: Oral Surgery Cardiovascular Surgical History: Reports: None Respiratory Surgical History: Reports: None GI Surgical History: Reports: Cholecystectomy, Colonoscopy Female Surgical History: Reports: Breast Biopsy, Section Other Female Surgeries/Procedures: x2 Endocrine Surgical History: Reports: None Neurological Surgical History: Reports: C-Spine, Spinal Fusion Other Neurological Surgeries/Procedures: spinal fusion C2-T1, has hardware Musculoskeletal Surgical History: Reports: None Oncologic Surgical History: Reports: Biopsy of Breast Dermatological Surgical History: Reports: None Social & Family History - Caffeine Use Caffeine Use: Reports: None - Recreational Drug Use Recreational Drug Use: No H&P Review of Systems - Review of Systems: Review Of Systems: Comprehensive ROS is negative, except as noted in HPI. Exam - Exam Exam: See Below - Vital Signs Vital Signs: Last Vital Signs Temp 96.9 F 05/14/21 12:15 Pulse 62 05/14/21 13:45 Resp 16 05/14/21 13:45 BP 149/84 H 05/14/21 13:45 Pulse Ox 97 05/14/21 13:45 Weight: 204 lb - Exam General: Alert, Oriented, Cooperative HEENT: Hearing Intact, PERRLA Neck: Supple. No: Lymphadenopathy, Carotid Bruit, JVD Lungs: Clear to Auscultation, Normal Respiratory Effort Cardiovascular: Regular Rate, Regular Rhythm GI/Abdominal Exam: Normal Bowel Sounds, Soft, Non-Tender Back Exam: Paraspinal Tenderness, Vertebral Tenderness Extremities: Normal Range of Motion, No Pedal Edema. No: Wandy's Sign Peripheral Pulses: 2+: Dorsalis Pedis (L), Dorsalis Pedis (R) Skin: Warm, Dry Neurological: Cranial Nerves Intact, Reflexes Equal Bilateral, Strength Equal Bilateral, Normal Speech, Normal Tone. No: Focal Deficit Neuro Extensive - Mental Status: Alert, Oriented x3 Neuro Extensive - Motor, Sensory, Reflexes: No: Expressive Aphasia, Facial palsy (L), Facial Palsy (R), Hemeplagia (R), Hemeplagia (L) - Patient Data Lab Results Last 24 hrs: Laboratory Results - last 24 hr 05/14/21 05/14/21 05/14/21 Range/Units 12:16 12:16 12:16 WBC 8.97 (4.0-11.0) K/uL RBC 4.99 (4.30-5.90) M/uL Hgb 15.7 (12.0-16.0) g/dL Hct 45.9 (36.0-46.0) % MCV 92.0 (80.0-98.0) fL MCH 31.5 (27.0-32.0) pg MCHC 34.2 (31.0-37.0) g/dL RDW Std Deviation 45.7 (28.0-62.0) fl RDW Coeff of Mariella 14 (11.0-15.0) % Plt Count 314 (150-400) K/uL MPV 10.50 (7.40-12.00) fL Neut % (Auto) 66.5 (48.0-80.0) % Lymph % (Auto) 22.2 (16.0-40.0) % [place] % (Auto) 6.7 (0.0-15.0) % Eos % (Auto) 3.5 (0.0-7.0) % Baso % (Auto) 1.1 (0.0-1.5) % Neut # (Auto) 6.0 H (1.4-5.7) K/uL Lymph # (Auto) 2.0 (0.6-2.4) K/uL [place] # (Auto) 0.6 (0.0-0.8) K/uL Eos # (Auto) 0.3 (0.0-0.7) K/uL Baso # (Auto) 0.1 (0.0-0.1) K/uL Nucleated RBC % 0.0 /100WBC Nucleated RBCs # 0 K/uL INR 0.95 APTT 24.5 (18.6-31.3) SEC Sodium 136 (136-145) mmol/L Potassium 4.6 (3.5-5.1) mmol/L Chloride 100 (98-107) mmol/L Carbon Dioxide 24.3 (21.0-32.0) mmol/L BUN 15 (7.0-18.0) mg/dL Creatinine 0.9 (0.6-1.0) mg/dL Est Cr Clr Drug Dosing TNP Estimated GFR (MDRD) > 60.0 ml/min Glucose 121 H (74-106) mg/dL Calcium 9.4 (8.5-10.1) mg/dL Total Bilirubin 0.3 (0.2-1.0) mg/dL AST 61 H (15-37) IU/L ALT 22 (14-63) IU/L Alkaline Phosphatase 119 H (46-116) U/L Troponin I < 0.050 (0.000-0.056) ng/mL Total Protein 8.4 H (6.4-8.2) g/dL Albumin 4.2 (3.4-5.0) g/dL Globulin 4.2 H (2.6-4.0) g/dL Albumin/Globulin Ratio 1.0 (0.9-1.6) TSH, Ultra Sensitive 1.59 (0.36-3.74) uIU/mL Urine Color Urine Appearance Urine pH (5.0-8.0) Ur Specific Issue (1.001-1.035) Urine Protein (NEGATIVE) mg/dL Urine Glucose (UA) (NEGATIVE) mg/dL Urine Ketones (NEGATIVE) mg/dL Urine Occult Blood (NEGATIVE) Urine Nitrite (NEGATIVE) Urine Bilirubin (NEGATIVE) Urine Urobilinogen (<2.0) EU/dL Ur Leukocyte Esterase (NEGATIVE) Urine RBC (0-2/HPF) Urine WBC (0-5/HPF) Ur Epithelial Cells (NONE-FEW) Urine Bacteria (NEGATIVE) 05/14/21 Range/Units 12:49 WBC (4.0-11.0) K/uL RBC (4.30-5.90) M/uL Hgb (12.0-16.0) g/dL Hct (36.0-46.0) % MCV (80.0-98.0) fL MCH (27.0-32.0) pg MCHC (31.0-37.0) g/dL RDW Std Deviation (28.0-62.0) fl RDW Coeff of Mariella (11.0-15.0) % Plt Count (150-400) K/uL MPV (7.40-12.00) fL Neut % (Auto) (48.0-80.0) % Lymph % (Auto) (16.0-40.0) % [place] % (Auto) (0.0-15.0) % Eos % (Auto) (0.0-7.0) % Baso % (Auto) (0.0-1.5) % Neut # (Auto) (1.4-5.7) K/uL Lymph # (Auto) (0.6-2.4) K/uL [place] # (Auto) (0.0-0.8) K/uL Eos # (Auto) (0.0-0.7) K/uL Baso # (Auto) (0.0-0.1) K/uL Nucleated RBC % /100WBC Nucleated RBCs # K/uL INR APTT (18.6-31.3) SEC Sodium (136-145) mmol/L Potassium (3.5-5.1) mmol/L Chloride (98-107) mmol/L Carbon Dioxide (21.0-32.0) mmol/L BUN (7.0-18.0) mg/dL Creatinine (0.6-1.0) mg/dL Est Cr Clr Drug Dosing Estimated GFR (MDRD) ml/min Glucose (74-106) mg/dL Calcium (8.5-10.1) mg/dL Total Bilirubin (0.2-1.0) mg/dL AST (15-37) IU/L ALT (14-63) IU/L Alkaline Phosphatase (46-116) U/L Troponin I (0.000-0.056) ng/mL Total Protein (6.4-8.2) g/dL Albumin (3.4-5.0) g/dL Globulin (2.6-4.0) g/dL Albumin/Globulin Ratio (0.9-1.6) TSH, Ultra Sensitive (0.36-3.74) uIU/mL Urine Color YELLOW Urine Appearance CLEAR Urine pH 6.0 (5.0-8.0) Ur Specific Issue <= 1.005 (1.001-1.035) Urine Protein NEGATIVE (NEGATIVE) mg/dL Urine Glucose (UA) NEGATIVE (NEGATIVE) mg/dL Urine Ketones NEGATIVE (NEGATIVE) mg/dL Urine Occult Blood SMALL H (NEGATIVE) Urine Nitrite NEGATIVE (NEGATIVE) Urine Bilirubin NEGATIVE (NEGATIVE) Urine Urobilinogen 0.2 (<2.0) EU/dL Ur Leukocyte Esterase NEGATIVE (NEGATIVE) Urine RBC 0-2 (0-2/HPF) Urine WBC 0-1 (0-5/HPF) Ur Epithelial Cells FEW (NONE-FEW) Urine Bacteria FEW (NEGATIVE) Result Diagrams: 05/14/21 12:16 05/14/21 12:16 Sepsis Event Note - Evaluation Sepsis Screening Result: No Definite Risk - Focused Exam Vital Signs: Vital Signs Temp Pulse Resp BP Pulse Ox 05/14/21 13:45 62 16 149/84 H 97 05/14/21 13:30 60 16 142/82 H 97 05/14/21 13:15 70 16 158/85 H 97 05/14/21 13:02 63 16 165/92 H 98 05/14/21 12:47 69 16 155/89 H 98 05/14/21 12:32 64 16 192/107 H 98 05/14/21 12:15 96.9 F 86 20 183/92 H 98 - Problem List (1) TIA (transient ischemic attack) SNOMED Code(s): 966757347 ICD Code: G45.9 - TRANSIENT CEREBRAL ISCHEMIC ATTACK, UNSPECIFIED Status: Acute Current Visit: Yes (2) Hypertension SNOMED Code(s): 43508514 ICD Code: I10 - ESSENTIAL (PRIMARY) HYPERTENSION Status: Acute Current Visit: Yes Problem List Initiated/Reviewed/Updated: Yes Orders Last 24hrs: Active Orders 24 hr Category Date Time Status Admission Status [Patient Status] [ADT] Stat ADT 05/14/21 14:35 Active Assess Neurological Status [RC] ASDIRECTED Care 05/14/21 12:17 Active Cardiac Monitoring [RC] . DIRECTED Care 05/14/21 12:17 Active EKG Documentation Completion [RC] STAT Care 05/14/21 12:17 Active Height and Weight [RC] UPON Care 05/14/21 12:17 Active Initiate Acute Stroke Protocol [RC] STAT Care 05/14/21 12:17 Active NIH Stroke Scale [RC] ASDIRECTED Care 05/14/21 12:17 Active Oxygen Therapy [RC] ASDIRECTED Care 05/14/21 12:17 Active Vital Signs [RC] Q15M Care 05/14/21 12:17 Active Brain w wo Cont [MR] Stat Exams 05/14/21 14:32 Ordered Sodium Chloride 0.9% [Normal Saline] Med 05/14/21 12:17 Active 10 ml IV ASDIRECTED PRN Sodium Chloride 0.9% [Saline Flush] Med 05/14/21 12:17 Active 10 ml FLUSH ASDIRECTED PRN Sodium Chloride 0.9% [Saline Flush] Med 05/14/21 12:17 Active 2.5 ml FLUSH ASDIRECTED PRN Peripheral IV Insertion Adult [OM.PC] Stat Oth 05/14/21 12:17 Ordered Medication Orders Sodium Chloride (Sodium Chloride 0.9% 10 Ml Syringe) 10 ml FLUSH ASDIRECTED PRN PRN Reason: Keep Vein Open Last Admin: 05/14/21 13:09 Dose: 10 ml Documented by: MURDNIC Sodium Chloride (Sodium Chloride 0.9% 2.5 Ml Syringe) 2.5 ml FLUSH ASDIRECTED PRN PRN Reason: Keep Vein Open Last Admin: 05/14/21 13:08 Dose: 2.5 ml Documented by: MURDNIC Sodium Chloride (Sodium Chloride 0.9% 10 Ml Sdv) 10 ml IV ASDIRECTED PRN PRN Reason: IV Use Assessment/Plan Comment:: 50-year-old female with a history of hypertension, angina and COPD with pertinent family history for stroke and PR is admitted for TIA. Currently asymptomatic, deficits improved. Admit patient for observation. N.p.o. pending bedside swallow study. Heart healthy diet. Allow permissive hypertension. Lipid panel, TSH, vitamin B12, hemoglobin A1c, urinalysis. Echocardiogram. MRI brain pending. Head/neck CTA was unremarkable. Consult physical therapy. Zofrlizzy. DuoNebs. Tylenol. Continue home medications, [place] twice daily as needed for chronic back pain. Cyclobenzaprine 10 mg 3 times daily as needed for back pain. Gabapentin for neuropathy. Hold lisinopril to allow for permissive hypertension.
[2021-05-14] MEDS ORDERED: Ondansetron 4 MG/2 ML SDV IVPUSH PRN (15:18)
[2021-05-14] MEDS ORDERED: Albuterol/Ipratropium 3.0-0.5 MG/3 ML Neb Soln NEB PRN (15:18)
[2021-05-14] MEDS ORDERED: Acetaminophen 325 MG Tab PO PRN (15:18)
[2021-05-14] MEDS ORDERED: Gadobenate Dimeglumine 529 MG/ML 20 ML SDV IVPUSH STA (15:43)
[2021-05-14 16:09] LABS: HEMOGLOBIN A1C 6.1 %
--- NOTE | 2021-05-14 17:20 | MR ---
INDICATION: Diplopia. COMPARISON: 05/14/2021. TECHNIQUE: Multiplanar T1, T2, FLAIR and diffusion-weighted imaging. Post gadolinium T1 weighted sequences. Additional pre and post gadolinium sequences of the orbits with fat saturation. FINDINGS: Normal brain parenchymal morphology. Few scattered foci of T2/FLAIR signal hyperintensity within the white matter consistent with chronic small vessel ischemic changes or sequela migraine headache. No intracranial hemorrhage. No abnormal ventricular dilatation. Intracranial vascular flow voids are preserved. No mass effect. No midline shift. No restricted diffusion to suggest acute ischemia. There is a tiny focus of increased signal intensity on DWI within the posterior left centrum semiovale (image 152) with no convincing signal dropout on the ADC map. Finding likely represents artifact or an evolving subacute infarct. No abnormal enhancement or enhancing lesions within the brain parenchyma. Dedicated sequences of the orbits demonstrates normal symmetric globes. No proptosis. Normal symmetric extra-ocular muscles. No intraconal or extraconal mass or lesion. No abnormal signal intensity or enhancement of the optic nerve sheath complexes. Normal appearing sella. No sellar suprasellar mass. Normal cavernous sinuses bilaterally. Mild mucosal thickening within the right frontal sinus and anterior ethmoid air cells. Remaining visualized paranasal sinuses and mastoid air cells are unremarkable. IMPRESSION: 1. No acute intracranial abnormality. 2. Normal brain parenchymal morphology. Few scattered foci of T2 signal within the white matter consistent with chronic small vessel ischemic changes of sickle migraine headache. 3. Dedicated sequences of the orbits demonstrates normal symmetric globes, extra-ocular muscles and optic nerve sheath complexes. No abnormal signal intensity or enhancement. 4. Mild mucosal thickening within the right frontal sinus and anterior ethmoid air cells. Dictated by Davis Alvarez MD @ 05/14/2021 5:19:[address] Davis Alvarez @ May 14 2021 5:19PM
[2021-05-14] MEDS ORDERED: Cyclobenzaprine 10 MG Tab PO PRN (17:29)
--- NOTE | 2021-05-14 18:37 | EDM.PDOC ---
ED HPI GENERAL MEDICAL PROBLEM - General Chief Complaint: Neuro Symptoms/Deficits Stated Complaint: STROKE CODE Time Seen by Provider: 05/14/21 12:23 - History of Present Illness INITIAL COMMENTS - FREE TEXT/NARRATIVE: CHIEF COMPLAINT(S): Diplopia HISTORY OF PRESENT ILLNESS: This is a 50-year-old woman with a past medical history of chronic back pain, obesity, hypertension who presents to the emergency department as a medical resuscitation via walk-in triage with a chief complaint of diplopia. The patient states that approximately 2 hours prior to arrival she started to experience diplopia associated with right upper and lower extremity paresthesias. She denies any trouble walking, speaking or swallowing. She denies any headache and states that the double vision has worsened over the last 3 months but it has worsened today at 10 AM. She states that it is sideways diplopia and not up-and-down diplopia. She has had 4 episodes of this. She states that she initially thought she had right upper and lower extremity paresthesias secondary to her back problems however this seemed to happen all at once today. She denies any chest pain, shortness of breath, abdominal pain. She denies any bowel incontinence, urinary incontinence. She denies any head injury or loss of consciousness. REVIEW OF SYSTEMS: Constitutional: Denies fever, chills. Eyes: Denies eye pain Ears, Nose, Mouth, & Throat: Denies earache Cardiovascular: Denies chest pain Respiratory: Denies shortness of breath Gastrointestinal: Denies Nausea, vomiting, diarrhea, hematochezia. Genitourinary: Denies hematuria Skin:Denies a rash Neurological: Positive for diplopia and right upper and lower extremity paresthesias. Denies weakness, trouble walking, trouble speaking Psychiatric: Denies depression PAST MEDICAL HISTORY: As per history of present illness and as reviewed below otherwise noncontributory. SURGICAL HISTORY: As per history of present illness and as reviewed below otherwise noncontributory. SOCIAL HISTORY: As per history of present illness and as reviewed below otherwise noncontributory. FAMILY HISTORY: As per history of present illness and as reviewed below otherwise noncontributory. EXAMINATION OF ORGAN SYSTEMS/BODY AREAS: VITALS: Blood pressure is 183/92, heart rate 86, respiratory rate 20 with an oxygen saturation 98% on room air. Temperature 36.1. GENERAL: The patient is well-nourished, well-developed, in no acute distress. HEAD: Normocephalic, atraumatic. EYES: EOMs intact. PERRL. No vertical or horizontal nystagmus. No visual field defects. ENT. External ears WNL. Nares patent. Oropharynx is clear with no erythema or exudate. No uvular or tongue swelling. NECK: Supple, no masses. Trachea is midline. LUNGS: No tachypnea or intercostal retractions. Clear to auscultation bilaterally, no wheezing, no rales, no stridor, no rhonchi. CARDIOVASCULAR: Regular rate and rhythm with S1-S2. No murmur, rubs or gallops. No edema. No JVD. ABDOMEN: Soft, non-distended, non-tender. Bowel sounds present in all 4 quadrants. No rebound tenderness, guarding, or peritoneal signs. MUSCULOSKELETAL: No deformity. Patient is moving all 4 limbs spontaneously. NEUROLOGICAL: AOx4. CN grossly intact. Stregth 5/5 in bilateral upper and lower extremity. Sensation is intact bilaterally in upper and lower extremity. Gait appears normal. Finger to nose, heel to casey, rapid alternating movements intact. NIH of 0 SKIN: No rashes, or pallor. No signs of injury. MEDICAL DECISION MAKING AND COURSE IN THE ED WITH INTERPRETATION/REVIEW OF DIAGNOSTIC STUDIES: This is a 50-year-old woman with a past medical history of hypertension who presents to the emergency department as a medical resuscitation via walk-in triage with chief complaint of diplopia and right upper and lower extremity paresthesias with an NIH of 0.. Immediately upon entering the resuscitation room the patient was disrobed, placed on continuous cardiac monitoring, and IV access was established by nursing. Patient is able to speak thus displaying a patent airway, breath sounds are equal bilaterally, and patient has palpable pulses in all 4 extremities. At this time given the diplopia the patient could be experiencing a posterior CVA. We will undergo a stroke work-up. [id number] glucose was normal. As we are transferring the patient to the CT the patient's symptoms as she reported have resolved. We will still undergo imaging. Given that her symptoms have resolved the patient does not require TNKase as this is a contraindication. Laboratory: CBC is unremarkable. CMP is unremarkable. Troponin is negative. TSH is normal. Urinalysis is normal. The radiological images were viewed by myself along with reading the report from the radiologist. CT without contrast of the head does not reveal any acute intracranial abnormality. CTA of the head and neck did not reveal any acute intracranial abnormality. There is no significant carotid or vertebral artery stenosis or dissection. No large vessel occlusion. Patient did obtain an EKG which was unremarkable. Cardiac monitoring at this time did reveal sinus rhythm and pulse oximetry with good waveform was 98% on room air. After imaging had resulted I did contact [facility] in [place] and spoke with neurologist Dr. Rice and he stated that it is uncommon to have diplopia with right sided symptoms however he does recommend observation admission with an MRI for transient ischemic attack given that the patient has had resolving symptoms. I did discuss this with the patient and she was amenable to this plan. I contacted our hospitalist Dr. Harvey who accepted the patient for admission. DISPOSITION: Admission CONDITION: Fair PROCEDURES: Cardiac monitoring, pulse oximetry interpretation FINAL IMPRESSION(S)/DIAGNOSES: 1. Acute on chronic diplopia, possible transient ischemic attack Critical Care Procedure Note Authorized and performed by: Julio Cesar Guerrero M.D. Critical Care Time: 40 minutes Due to a high probability of clinically significant, life threatening deterioration, the patient required my highest level of preparedness to intervene emergently and I personally spent this critical care time directly and personally managing the patient. This critical care time included obtaining a history, examining the patient, pulse oximetry; ordering and review of studies; arranging urgent treatment with development of a management plan; evaluation of a patients reponse to treatment; frequent assessment; and discussions with other providers. This critical care time was performed to assess and manage the high probability of imminent, life threatening deterioration that could result in multiorgan failure. It was exclusive of separate billable procedures and treating other patients. Please see MDM section and rest of the note for further information on patient assessment and treatment. Please see MDM section and rest of the note for further information on patient assessment and treatment. Head Pain Score (Numeric/FACES): 4 - Related Data Allergies Allergy/AdvReac Type Severity Reaction Status Date / Time tramadol Allergy Hives Verified 05/14/21 12:23 Home Meds: Home Meds Cyclobenzaprine HCl 10 mg PO TID PRN 06/11/18 [History] Hydrocodone/Acetaminophen [[place] 10-325 Tablet] 1 tab PO Q12H PRN 06/11/18 [History] Lisinopril 10 mg PO BEDTIME 06/11/18 [History] Diclofenac Sodium [Voltaren 1% Gel] 1 applic TOP ASDIRECTED PRN 01/13/19 [History] Gabapentin [Neurontin] 600 mg PO BID PRN 04/07/20 [History] Venlafaxine HCl [Venlafaxine HCl ER] 50 mg PO TID 04/07/20 [History] Past Medical History HEENT History: Reports: None Cardiovascular History: Reports: Hypertension Respiratory History: Reports: COPD Other Respiratory History: Very mild, does not take any medications Gastrointestinal History: Reports: Colon Polyp Genitourinary History: Reports: None 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 CLERK History: ETOPx2, C/S x2 Musculoskeletal History: Reports: Arthritis, Back Pain, Chronic, Neck Pain, Chronic, Other (See Below) Neurological History: Reports: Headaches, Chronic, Other (See Below) Other Neuro History: degenerative disc disease Psychiatric History: Reports: Anxiety, Depression, PTSD Endocrine/Metabolic History: Reports: Obesity/BMI 30+ Hematologic History: Reports: None Immunologic History: Reports: None Oncologic (Cancer) History: Reports: None Dermatologic History: Reports: None - Infectious Disease History Infectious Disease History: Reports: Chicken Pox - Past Surgical History Head Surgeries/Procedures: Reports: None HEENT Surgical History: Reports: Oral Surgery Cardiovascular Surgical History: Reports: None Respiratory Surgical History: Reports: None GI Surgical History: Reports: Cholecystectomy, Colonoscopy Female Surgical History: Reports: Breast Biopsy, Section Other Female Surgeries/Procedures: x2 Endocrine Surgical History: Reports: None Neurological Surgical History: Reports: C-Spine, Spinal Fusion Other Neurological Surgeries/Procedures: spinal fusion C2-T1, has hardware Musculoskeletal Surgical History: Reports: None Oncologic Surgical History: Reports: Biopsy of Breast Dermatological Surgical History: Reports: None Social & Family History - Tobacco Use Years of Tobacco use: 30 Used Tobacco, but Quit: Yes Month/Year Tobacco Last Used: 04/2021 - Caffeine Use Caffeine Use: Reports: Coffee, Soda, Tea Caffeine Use Comment: drinks a pot of coffe a day, approx 4 sodas a day - Recreational Drug Use Recreational Drug Use: Yes Recreational Drug Type: Reports: Marijuana/Hashish Recreational Drug Use Frequency: Not Used In Over 2 Months ED ROS GENERAL - Review of Systems Review Of Systems: See Below ED EXAM, GENERAL - Physical Exam Exam: See Below Peripheral Pulses: 2+: Dorsalis Pedis (L), Dorsalis Pedis (R) GI/Abdominal: Normal Bowel Sounds, Soft, Non-Tender Back Exam: Paraspinal Tenderness, Vertebral Tenderness Extremities: Normal Range of Motion, No Pedal Edema. No: Wandy's Sign Course - Vital Signs Last Recorded V/S: Last Vital Signs Temp 36 C L 05/14/21 16:30 Pulse 66 05/14/21 16:30 Resp 20 05/14/21 16:30 BP 153/89 H 05/14/21 16:30 Pulse Ox 97 05/14/21 16:30 - Orders/Labs/Meds Orders: Active Orders 24 hr Category Date Time Status Admission Status [Patient Status] [ADT] Stat ADT 05/14/21 14:35 Active Assess Neurological Status [RC] ASDIRECTED Care 05/14/21 12:17 Active Cardiac Monitoring [RC] . DIRECTED Care 05/14/21 12:17 Active EKG Documentation Completion [RC] STAT Care 05/14/21 12:17 Active Height and Weight [RC] UPON Care 05/14/21 12:17 Active Initiate Acute Stroke Protocol [RC] STAT Care 05/14/21 12:17 Active NIH Stroke Scale [RC] ASDIRECTED Care 05/14/21 12:17 Active Oxygen Therapy [RC] ASDIRECTED Care 05/14/21 12:17 Active Vital Signs [RC] Q15M Care 05/14/21 12:17 Active Sodium Chloride 0.9% [Normal Saline] Med 05/14/21 12:17 Active 10 ml IV ASDIRECTED PRN Sodium Chloride 0.9% [Saline Flush] Med 05/14/21 12:17 Active 10 ml FLUSH ASDIRECTED PRN Sodium Chloride 0.9% [Saline Flush] Med 05/14/21 12:17 Active 2.5 ml FLUSH ASDIRECTED PRN Peripheral IV Insertion Adult [OM.PC] Stat Oth 05/14/21 12:17 Ordered Medication Orders Acetaminophen (Acetaminophen 325 Mg Tab) 650 mg PO Q4H PRN PRN Reason: Pain (Mild 1-3)/fever Hydrocodone Bitart/Acetaminophen (Acetaminophen/Hydrocodone 325-10 Mg Tab) 1 tab PO Q12HR PRN PRN Reason: Pain Albuterol/Ipratropium (Albuterol/Ipratropium 3.0-0.5 Mg/3 Ml Neb Soln) 3 ml NEB Q4HRRT PRN PRN Reason: Shortness Of Breath/wheezing Aspirin (Aspirin 81 Mg Tab.Chew) 81 mg PO DAILY FROY Atorvastatin Calcium (Atorvastatin 40 Mg Tab) 40 mg PO BEDTIME FROY Cyclobenzaprine HCl (Cyclobenzaprine 10 Mg Tab) 10 mg PO TID PRN PRN Reason: Pain Gabapentin (Gabapentin 300 Mg Cap) 600 mg PO BID PRN PRN Reason: Pain Ondansetron HCl (Ondansetron 4 Mg/2 Ml Sdv) 4 mg IVPUSH Q4H PRN PRN Reason: Nausea/Vomiting Diclofenac Sodium (100 Gm Tube) 1 each TOP QID PRN PRN Reason: Pain Sodium Chloride (Sodium Chloride 0.9% 10 Ml Syringe) 10 ml FLUSH ASDIRECTED PRN PRN Reason: Keep Vein Open Last Admin: 05/14/21 13:09 Dose: 10 ml Documented by: MURDNIC Sodium Chloride (Sodium Chloride 0.9% 2.5 Ml Syringe) 2.5 ml FLUSH ASDIRECTED PRN PRN Reason: Keep Vein Open Last Admin: 05/14/21 13:08 Dose: 2.5 ml Documented by: MURDNIC Sodium Chloride (Sodium Chloride 0.9% 10 Ml Sdv) 10 ml IV ASDIRECTED PRN PRN Reason: IV Use Labs: Laboratory Tests 05/14/21 05/14/21 05/14/21 Range/Units 12:16 12:16 12:16 WBC 8.97 (4.0-11.0) K/uL RBC 4.99 (4.30-5.90) M/uL Hgb 15.7 (12.0-16.0) g/dL Hct 45.9 (36.0-46.0) % MCV 92.0 (80.0-98.0) fL MCH 31.5 (27.0-32.0) pg MCHC 34.2 (31.0-37.0) g/dL RDW Std Deviation 45.7 (28.0-62.0) fl RDW Coeff of Mariella 14 (11.0-15.0) % Plt Count 314 (150-400) K/uL MPV 10.50 (7.40-12.00) fL Neut % (Auto) 66.5 (48.0-80.0) % Lymph % (Auto) 22.2 (16.0-40.0) % Parker % (Auto) 6.7 (0.0-15.0) % Eos % (Auto) 3.5 (0.0-7.0) % Baso % (Auto) 1.1 (0.0-1.5) % Neut # (Auto) 6.0 H (1.4-5.7) K/uL Lymph # (Auto) 2.0 (0.6-2.4) K/uL Parker # (Auto) 0.6 (0.0-0.8) K/uL Eos # (Auto) 0.3 (0.0-0.7) K/uL Baso # (Auto) 0.1 (0.0-0.1) K/uL Nucleated RBC % 0.0 /100WBC Nucleated RBCs # 0 K/uL INR 0.95 APTT 24.5 (18.6-31.3) SEC Sodium 136 (136-145) mmol/L Potassium 4.6 (3.5-5.1) mmol/L Chloride 100 (98-107) mmol/L Carbon Dioxide 24.3 (21.0-32.0) mmol/L BUN 15 (7.0-18.0) mg/dL Creatinine 0.9 (0.6-1.0) mg/dL Est Cr Clr Drug Dosing TNP Estimated GFR (MDRD) > 60.0 ml/min Glucose 121 H (74-106) mg/dL Hemoglobin A1c (4.5 - 6.2) % Calcium 9.4 (8.5-10.1) mg/dL Phosphorus (2.6-4.7) mg/dL Magnesium (1.8-2.4) mg/dL Total Bilirubin 0.3 (0.2-1.0) mg/dL AST 61 H (15-37) IU/L ALT 22 (14-63) IU/L Alkaline Phosphatase 119 H (46-116) U/L Troponin I < 0.050 (0.000-0.056) ng/mL Total Protein 8.4 H (6.4-8.2) g/dL Albumin 4.2 (3.4-5.0) g/dL Globulin 4.2 H (2.6-4.0) g/dL Albumin/Globulin Ratio 1.0 (0.9-1.6) Triglycerides (0-200) mg/dL Cholesterol (50-200) mg/dL HDL Cholesterol (40-60) mg/dL Cholesterol/HDL Ratio (3.3-6.0) Vitamin B12 (193-986) pg/mL TSH, Ultra Sensitive 1.59 (0.36-3.74) uIU/mL Urine Color Urine Appearance Urine pH (5.0-8.0) Ur Specific [place] (1.001-1.035) Urine Protein (NEGATIVE) mg/dL Urine Glucose (UA) (NEGATIVE) mg/dL Urine Ketones (NEGATIVE) mg/dL Urine Occult Blood (NEGATIVE) Urine Nitrite (NEGATIVE) Urine Bilirubin (NEGATIVE) Urine Urobilinogen (<2.0) EU/dL Ur Leukocyte Esterase (NEGATIVE) Urine RBC (0-2/HPF) Urine WBC (0-5/HPF) Ur Epithelial Cells (NONE-FEW) Urine Bacteria (NEGATIVE) 05/14/21 05/14/21 05/14/21 Range/Units 12:16 12:16 12:16 WBC (4.0-11.0) K/uL RBC (4.30-5.90) M/uL Hgb (12.0-16.0) g/dL Hct (36.0-46.0) % MCV (80.0-98.0) fL MCH (27.0-32.0) pg MCHC (31.0-37.0) g/dL RDW Std Deviation (28.0-62.0) fl RDW Coeff of Mariella (11.0-15.0) % Plt Count (150-400) K/uL MPV (7.40-12.00) fL Neut % (Auto) (48.0-80.0) % Lymph % (Auto) (16.0-40.0) % Parker % (Auto) (0.0-15.0) % Eos % (Auto) (0.0-7.0) % Baso % (Auto) (0.0-1.5) % Neut # (Auto) (1.4-5.7) K/uL Lymph # (Auto) (0.6-2.4) K/uL Parker # (Auto) (0.0-0.8) K/uL Eos # (Auto) (0.0-0.7) K/uL Baso # (Auto) (0.0-0.1) K/uL Nucleated RBC % /100WBC Nucleated RBCs # K/uL INR APTT (18.6-31.3) SEC Sodium (136-145) mmol/L Potassium (3.5-5.1) mmol/L Chloride (98-107) mmol/L Carbon Dioxide (21.0-32.0) mmol/L BUN (7.0-18.0) mg/dL Creatinine (0.6-1.0) mg/dL Est Cr Clr Drug Dosing Estimated GFR (MDRD) ml/min Glucose (74-106) mg/dL Hemoglobin A1c 6.1 (4.5 - 6.2) % Calcium (8.5-10.1) mg/dL Phosphorus 4.0 (2.6-4.7) mg/dL Magnesium 2.3 (1.8-2.4) mg/dL Total Bilirubin (0.2-1.0) mg/dL AST (15-37) IU/L ALT (14-63) IU/L Alkaline Phosphatase (46-116) U/L Troponin I (0.000-0.056) ng/mL Total Protein (6.4-8.2) g/dL Albumin (3.4-5.0) g/dL Globulin (2.6-4.0) g/dL Albumin/Globulin Ratio (0.9-1.6) Triglycerides 804 H (0-200) mg/dL Cholesterol 302 H (50-200) mg/dL HDL Cholesterol 35 L (40-60) mg/dL Cholesterol/HDL Ratio 8.6 H (3.3-6.0) Vitamin B12 326 (193-986) pg/mL TSH, Ultra Sensitive (0.36-3.74) uIU/mL Urine Color Urine Appearance Urine pH (5.0-8.0) Ur Specific [place] (1.001-1.035) Urine Protein (NEGATIVE) mg/dL Urine Glucose (UA) (NEGATIVE) mg/dL Urine Ketones (NEGATIVE) mg/dL Urine Occult Blood (NEGATIVE) Urine Nitrite (NEGATIVE) Urine Bilirubin (NEGATIVE) Urine Urobilinogen (<2.0) EU/dL Ur Leukocyte Esterase (NEGATIVE) Urine RBC (0-2/HPF) Urine WBC (0-5/HPF) Ur Epithelial Cells (NONE-FEW) Urine Bacteria (NEGATIVE) 05/14/21 Range/Units 12:49 WBC (4.0-11.0) K/uL RBC (4.30-5.90) M/uL Hgb (12.0-16.0) g/dL Hct (36.0-46.0) % MCV (80.0-98.0) fL MCH (27.0-32.0) pg MCHC (31.0-37.0) g/dL RDW Std Deviation (28.0-62.0) fl RDW Coeff of Mariella (11.0-15.0) % Plt Count (150-400) K/uL MPV (7.40-12.00) fL Neut % (Auto) (48.0-80.0) % Lymph % (Auto) (16.0-40.0) % Parker % (Auto) (0.0-15.0) % Eos % (Auto) (0.0-7.0) % Baso % (Auto) (0.0-1.5) % Neut # (Auto) (1.4-5.7) K/uL Lymph # (Auto) (0.6-2.4) K/uL Parker # (Auto) (0.0-0.8) K/uL Eos # (Auto) (0.0-0.7) K/uL Baso # (Auto) (0.0-0.1) K/uL Nucleated RBC % /100WBC Nucleated RBCs # K/uL INR APTT (18.6-31.3) SEC Sodium (136-145) mmol/L Potassium (3.5-5.1) mmol/L Chloride (98-107) mmol/L Carbon Dioxide (21.0-32.0) mmol/L BUN (7.0-18.0) mg/dL Creatinine (0.6-1.0) mg/dL Est Cr Clr Drug Dosing Estimated GFR (MDRD) ml/min Glucose (74-106) mg/dL Hemoglobin A1c (4.5 - 6.2) % Calcium (8.5-10.1) mg/dL Phosphorus (2.6-4.7) mg/dL Magnesium (1.8-2.4) mg/dL Total Bilirubin (0.2-1.0) mg/dL AST (15-37) IU/L ALT (14-63) IU/L Alkaline Phosphatase (46-116) U/L Troponin I (0.000-0.056) ng/mL Total Protein (6.4-8.2) g/dL Albumin (3.4-5.0) g/dL Globulin (2.6-4.0) g/dL Albumin/Globulin Ratio (0.9-1.6) Triglycerides (0-200) mg/dL Cholesterol (50-200) mg/dL HDL Cholesterol (40-60) mg/dL Cholesterol/HDL Ratio (3.3-6.0) Vitamin B12 (193-986) pg/mL TSH, Ultra Sensitive (0.36-3.74) uIU/mL Urine Color YELLOW Urine Appearance CLEAR Urine pH 6.0 (5.0-8.0) Ur Specific [place] <= 1.005 (1.001-1.035) Urine Protein NEGATIVE (NEGATIVE) mg/dL Urine Glucose (UA) NEGATIVE (NEGATIVE) mg/dL Urine Ketones NEGATIVE (NEGATIVE) mg/dL Urine Occult Blood SMALL H (NEGATIVE) Urine Nitrite NEGATIVE (NEGATIVE) Urine Bilirubin NEGATIVE (NEGATIVE) Urine Urobilinogen 0.2 (<2.0) EU/dL Ur Leukocyte Esterase NEGATIVE (NEGATIVE) Urine RBC 0-2 (0-2/HPF) Urine WBC 0-1 (0-5/HPF) Ur Epithelial Cells FEW (NONE-FEW) Urine Bacteria FEW (NEGATIVE) Meds: Medications Generic Name Dose Route Start Last Admin Trade Name Freq PRN Reason Stop Dose Admin Acetaminophen 650 mg 05/14/21 15:18 Acetaminophen 325 Mg Tab PO Q4H PRN Pain (Mild 1-3)/fever Hydrocodone Bitart/Acetaminophen 1 tab 05/14/21 21:00 Acetaminophen/Hydrocodone 325-10 Mg Tab PO Q12HR PRN Pain Albuterol/Ipratropium 3 ml 05/14/21 15:18 Albuterol/Ipratropium 3.0-0.5 Mg/3 Ml Neb Soln NEB Q4HRRT PRN Shortness Of Breath/wheezing Aspirin 81 mg 05/15/21 09:00 Aspirin 81 Mg Tab.Chew PO DAILY FROY Atorvastatin Calcium 40 mg 05/14/21 21:00 Atorvastatin 40 Mg Tab PO BEDTIME FROY Cyclobenzaprine HCl 10 mg 05/14/21 17:29 Cyclobenzaprine 10 Mg Tab PO TID PRN Pain Gabapentin 600 mg 05/14/21 21:00 Gabapentin 300 Mg Cap PO BID PRN Pain Ondansetron HCl 4 mg 05/14/21 15:18 Ondansetron 4 Mg/2 Ml Sdv IVPUSH Q4H PRN Nausea/Vomiting Diclofenac Sodium 1 each 05/14/21 18:00 100 Gm Tube TOP QID PRN Pain Sodium Chloride 10 ml 05/14/21 12:17 05/14/21 13:09 Sodium Chloride 0.9% 10 Ml Syringe FLUSH 10 ml ASDIRECTED PRN Administration Keep Vein Open Sodium Chloride 2.5 ml 05/14/21 12:17 05/14/21 13:08 Sodium Chloride 0.9% 2.5 Ml Syringe FLUSH 2.5 ml ASDIRECTED PRN Administration Keep Vein Open Sodium Chloride 10 ml 05/14/21 12:17 Sodium Chloride 0.9% 10 Ml Sdv IV ASDIRECTED PRN IV Use Discontinued Medications Generic Name Dose Route Start Last Admin Trade Name Freq PRN Reason Stop Dose Admin Hydrocodone Bitart/Acetaminophen 1 tab 05/14/21 14:34 05/14/21 15:01 Acetaminophen/Hydrocodone 325-10 Mg Tab PO 05/14/21 14:35 1 tab ONETIME ONE Administration Cyclobenzaprine HCl 10 mg 05/14/21 14:34 05/14/21 15:00 Cyclobenzaprine 10 Mg Tab PO 05/14/21 14:35 10 mg ONETIME ONE Administration Gabapentin 300 mg 05/14/21 14:34 05/14/21 17:07 Gabapentin 300 Mg Cap PO 05/14/21 14:35 300 mg ONETIME ONE Administration Gadobenate Dimeglumine 20 ml 05/14/21 15:43 05/14/21 15:47 Gadobenate Dimeglumine 529 Mg/Ml 20 Ml Sdv IVPUSH 05/14/21 15:44 20 ml ONETIME STA Administration Iopamidol 100 ml 05/14/21 13:59 05/14/21 14:00 Iopamidol 755 Mg/Ml 500 Ml Multipack Bottle IVPUSH 05/14/21 14:00 100 ml ONETIME STA Administration Departure - Departure Time of Disposition: 14:35 Disposition: Admitted As Inpatient 64 Condition: Fair Clinical Impression: TIA (transient ischemic attack), Diplopia - Discharge Information Sepsis Event Note (ED) - Evaluation Sepsis Screening Result: No Definite Risk - Focused Exam Vital Signs: Vital Signs Temp Pulse Resp BP Pulse Ox 05/14/21 14:00 67 16 133/66 96 05/14/21 13:45 62 16 149/84 H 97 05/14/21 13:30 60 16 142/82 H 97 05/14/21 13:15 70 16 158/85 H 97 05/14/21 13:02 63 16 165/92 H 98 05/14/21 12:47 69 16 155/89 H 98 05/14/21 12:32 64 16 192/107 H 98 05/14/21 12:15 36.1 C 86 20 183/92 H 98 - My Orders Last 24 Hours: My Active Orders 05/14/21 14:35 Admission Status [Patient Status] [ADT] Stat - Assessment/Plan Last 24 Hours: My Active Orders 05/14/21 14:35 Admission Status [Patient Status] [ADT] Stat
[2021-05-14] MEDS ORDERED: Labetalol 100 MG/20 ML MDV IVPUSH PRN (19:47)
[2021-05-14] MEDS ORDERED: Acetaminophen/HYDROcodone 325-10 MG Tab PO PRN (21:00)
[2021-05-14] MEDS ORDERED: atorvaSTATin 40 MG Tab PO SCH (21:00)
[2021-05-14] MEDS ORDERED: Gabapentin 300 MG Cap PO PRN (21:00)
[2021-05-15 06:35] LABS: BLOOD UREA NITROGEN,BUN 17 mg/dL (7.0-18.0); CHLORIDE,CL 101 mmol/L (98-107); GLUCOSE RANDOM 114 mg/dL (74-106); POTASSIUM,K 4.4 mmol/L (3.5-5.1); SODIUM,NA 136 mmol/L (136-145)
[2021-05-15 07:59] VITALS: PULSE 61
[2021-05-15] MEDS ORDERED: Aspirin 81 MG Tab.Chew PO SCH (09:00)
--- NOTE | 2021-05-15 11:04 | PCM.EKG ---
#1 Interpretation EKG Date: 05/14/21 Time: 12:49 Rhythm: NSR Rate (Beats/Min): 66 [place]: Normal P-Wave: Present QRS: Normal ST-T: Normal QT: Normal Comparison: No Change (11/15/20) EKG Interpretation Comments: Sinus Rhythm
[2021-05-15] MEDS ORDERED: Morphine 2 MG/ML SYRINGE IVPUSH ONE (11:59)
[2021-05-15 13:04] VITALS: BP 131/79
--- NOTE | 2021-05-15 13:25 | PCM.DCSUM1 ---
Discharge Summary - Hospital Course Free Text/Narrative:: 50-year-old female with a history of hypertension, obesity, COPD presented to the ED complaining of episodes of blurry vision. Last episode started yesterday and was associated with tingling in her right arm and leg. Her noticed she was not finishing her sentences and having difficulty with speech. Also complained of a frontal headache for 4 days. She has had double vision episodes since January. She denied loss of vision, dysphagia, difficulty walking or loss of consciousness. No previous history of stroke or TIA. Patient does endorse a history of angina. Patient was admitted for observation. Blood pressure 183/92. Respiratory rate 20. 98% on room air. WBC 8.97. Hgb 15.7. Platelet 314. INR 0.95. PTT 24.5. Sodium 136. Potassium 4.6. Chloride 100. Bicarb 24.3. BUN 15. Creatinine 0.9. Glucose 121. AST 61. Alk phos 119. Total protein 8.4. TSH 1.59. Urinalysis unremarkable. Triglycerides 804. Cholesterol 302. Vitamin B12 326. Neck/head CT angio: No acute intracranial abnormality. No significant carotid or vertebral artery stenosis or dissection. CT head: No intracranial abnormality. MRI brain showed no acute intracranial abnormality, few scattered foci within white matter consistent with chronic small vessel isch emic changes of sickle migraine headache. Permissive hypertension was allowed. Lisinopril was held. Patient facial tingling improved. This morning she has no difficulty with speech. She does endorse chronic right lower extremity numbness and tingling. Patient had an echocardiogram done which is pending. Patient will be discharged and referred to neurology outpatient. Patient started on asp irin 81 mg daily. Atorvastatin 40 mg daily. Patient given referral for pain management as her current provider has left [facility]. - Discharge Data Discharge Date: 05/15/21 Discharge Disposition: Home, Self-Care 01 Condition: Stable - Referral to Home Health Primary Care Physician: Hitesh Foster MD Skilled Need: Physical therapy - Discharge Diagnosis/Problem(s) (1) TIA (transient ischemic attack) SNOMED Code(s): 074798638 ICD Code: G45.9 - TRANSIENT CEREBRAL ISCHEMIC ATTACK, UNSPECIFIED Status: Acute (2) Hypertension SNOMED Code(s): 69180321 ICD Code: I10 - ESSENTIAL (PRIMARY) HYPERTENSION Status: Acute - Patient Summary/Data Consults: Consultations 05/15/21 13:24 Consult to Home Health [CONS] Routine 05/15/21 15:18 PT Evaluation and Treatment [CONS] Routine - Patient Instructions Diet: Heart Healthy Diet Activity: As Tolerated Other/Special Instructions: Please seek immediate medical attention if you experience sudden onset difficulty speaking, facial droop, arm or leg weakness. You are being started on: 1. Atorvastatin 40mg for high cholesterol. 2. Aspirin daily. 3. Gabapentin is being increased to 600mg twice a day. You have 2 week prescription. Please see PCP for refills. - Discharge Plan *PRESCRIPTION DRUG MONITORING PROGRAM REVIEWED*: Not Applicable *COPY OF PRESCRIPTION DRUG MONITORING REPORT IN PATIENT ZULMA: Not Applicable Prescriptions/Med Rec: Aspirin 81 mg PO DAILY 30 Days #30 tab.chew atorvaSTATin [Lipitor] 40 mg PO BEDTIME 30 Days #30 tablet Gabapentin [Neurontin] 600 mg PO BID 14 Days #56 cap Home Medications: Home Meds Cyclobenzaprine HCl 10 mg PO TID PRN 06/11/18 [History] Hydrocodone/Acetaminophen [[place] 10-325 Tablet] 1 tab PO Q12H PRN 06/11/18 [History] Lisinopril 10 mg PO BEDTIME 06/11/18 [History] Diclofenac Sodium [Voltaren 1% Gel] 1 applic TOP ASDIRECTED PRN 01/13/19 [History] Desvenlafaxine [Desvenlafaxine ER] 50 mg PO BEDTIME 05/14/21 [History] Varenicline Tartrate [Chantix] 1 mg PO BID 05/14/21 [History] Aspirin 81 mg PO DAILY 30 Days #30 tab.chew 05/15/21 [Rx] Gabapentin [Neurontin] 600 mg PO BID 14 Days #56 cap 05/15/21 [Rx] atorvaSTATin [Lipitor] 40 mg PO BEDTIME 30 Days #30 tablet 05/15/21 [Rx] Patient Handouts: Gabapentin capsules or tablets, Transient Ischemic Attack, [id number], Atorvastatin tablets, Aspirin, ASA oral tablets, Diplopia Referrals: Carmen Martinez MD [Physician] - 07/30/21 10:00 am Jerry Ace MD [Ordering Only Provider] - (Referral has been sent and they will contact you for appointment date and time.) Ed Ozuna [Ordering Only Provider] - 05/16/21 11:15 am (Appointment is with Dr. Felicia Godoy) - Discharge Summary/Plan Comment DC Time >30 min.: Yes Total # of Minutes for Discharge Time: 31 - General Info Admission Dx/Problem (Free Text: Admission Diagnosis/Problem Admission Diagnosis/Problem TIA, Transient ischemic attack - Review of Systems General: Reports: No Symptoms HEENT: Reports: Headaches Pulmonary: Reports: No Symptoms Cardiovascular: Reports: No Symptoms Gastrointestinal: Reports: No Symptoms Genitourinary: Reports: No Symptoms Musculoskeletal: Reports: Arm Pain, Back Pain, Leg Pain Skin: Reports: No Symptoms Neurological: Reports: Headache, Numbness, Paresthesia, Tingling. Denies: Confusion, Dizziness, Seizure, Syncope, Tremors, Trouble Speaking - Patient Data Vitals - Most Recent: Last Vital Signs Temp 97.5 F 05/15/21 11:00 Pulse 61 05/15/21 07:57 Resp 16 05/15/21 07:57 BP 131/79 05/15/21 11:00 Pulse Ox 95 05/15/21 07:57 Weight - Most Recent: 202 lb 9.6 oz I&O - Last 24 hours: Intake & Output 05/14/21 05/15/21 05/15/21 22:59 06:59 14:59 Intake Total 850 Output Total 1500 Balance -650 Lab Results - Last 24 hrs: Laboratory Results - last 24 hr 05/14/21 05/14/21 05/14/21 Range/Units 12:16 12:16 12:16 WBC (4.0-11.0) K/uL RBC (4.30-5.90) M/uL Hgb (12.0-16.0) g/dL Hct (36.0-46.0) % MCV (80.0-98.0) fL MCH (27.0-32.0) pg MCHC (31.0-37.0) g/dL RDW Std Deviation (28.0-62.0) fl RDW Coeff of Mariella (11.0-15.0) % Plt Count (150-400) K/uL MPV (7.40-12.00) fL Neut % (Auto) (48.0-80.0) % Lymph % (Auto) (16.0-40.0) % Trigg % (Auto) (0.0-15.0) % Eos % (Auto) (0.0-7.0) % Baso % (Auto) (0.0-1.5) % Neut # (Auto) (1.4-5.7) K/uL Lymph # (Auto) (0.6-2.4) K/uL Trigg # (Auto) (0.0-0.8) K/uL Eos # (Auto) (0.0-0.7) K/uL Baso # (Auto) (0.0-0.1) K/uL Nucleated RBC % /100WBC Nucleated RBCs # K/uL Sodium (136-145) mmol/L Potassium (3.5-5.1) mmol/L Chloride (98-107) mmol/L Carbon Dioxide (21.0-32.0) mmol/L BUN (7.0-18.0) mg/dL Creatinine (0.6-1.0) mg/dL Est Cr Clr Drug Dosing mL/min Estimated GFR (MDRD) ml/min Glucose (74-106) mg/dL Hemoglobin A1c 6.1 (4.5 - 6.2) % Calcium (8.5-10.1) mg/dL Phosphorus 4.0 (2.6-4.7) mg/dL Magnesium 2.3 (1.8-2.4) mg/dL Total Bilirubin (0.2-1.0) mg/dL AST (15-37) IU/L ALT (14-63) IU/L Alkaline Phosphatase (46-116) U/L Total Protein (6.4-8.2) g/dL Albumin (3.4-5.0) g/dL Globulin (2.6-4.0) g/dL Albumin/Globulin Ratio (0.9-1.6) Triglycerides 804 H (0-200) mg/dL Cholesterol 302 H (50-200) mg/dL HDL Cholesterol 35 L (40-60) mg/dL Cholesterol/HDL Ratio 8.6 H (3.3-6.0) Vitamin B12 326 (193-986) pg/mL Urine Color Urine Appearance Urine pH (5.0-8.0) Ur Specific [place] (1.001-1.035) Urine Protein (NEGATIVE) mg/dL Urine Glucose (UA) (NEGATIVE) mg/dL Urine Ketones (NEGATIVE) mg/dL Urine Occult Blood (NEGATIVE) Urine Nitrite (NEGATIVE) Urine Bilirubin (NEGATIVE) Urine Urobilinogen (<2.0) EU/dL Ur Leukocyte Esterase (NEGATIVE) Urine RBC (0-2/HPF) Urine WBC (0-5/HPF) Ur Epithelial Cells (NONE-FEW) Urine Bacteria (NEGATIVE) 05/14/21 05/15/21 05/15/21 Range/Units 12:49 05:18 05:18 WBC 6.93 (4.0-11.0) K/uL RBC 4.77 (4.30-5.90) M/uL Hgb 15.0 (12.0-16.0) g/dL Hct 44.1 (36.0-46.0) % MCV 92.5 (80.0-98.0) fL MCH 31.4 (27.0-32.0) pg MCHC 34.0 (31.0-37.0) g/dL RDW Std Deviation 46.7 (28.0-62.0) fl RDW Coeff of Mariella 14 (11.0-15.0) % Plt Count 290 (150-400) K/uL MPV 10.30 (7.40-12.00) fL Neut % (Auto) 52.9 (48.0-80.0) % Lymph % (Auto) 35.4 (16.0-40.0) % Trigg % (Auto) 6.9 (0.0-15.0) % Eos % (Auto) 3.6 (0.0-7.0) % Baso % (Auto) 1.2 (0.0-1.5) % Neut # (Auto) 3.7 (1.4-5.7) K/uL Lymph # (Auto) 2.5 H (0.6-2.4) K/uL Trigg # (Auto) 0.5 (0.0-0.8) K/uL Eos # (Auto) 0.3 (0.0-0.7) K/uL Baso # (Auto) 0.1 (0.0-0.1) K/uL Nucleated RBC % 0.0 /100WBC Nucleated RBCs # 0 K/uL Sodium 136 (136-145) mmol/L Potassium 4.4 (3.5-5.1) mmol/L Chloride 101 (98-107) mmol/L Carbon Dioxide 27.0 (21.0-32.0) mmol/L BUN 17 (7.0-18.0) mg/dL Creatinine 0.8 (0.6-1.0) mg/dL Est Cr Clr Drug Dosing 74.02 mL/min Estimated GFR (MDRD) > 60.0 ml/min Glucose 114 H (74-106) mg/dL Hemoglobin A1c (4.5 - 6.2) % Calcium 9.4 (8.5-10.1) mg/dL Phosphorus (2.6-4.7) mg/dL Magnesium (1.8-2.4) mg/dL Total Bilirubin 0.3 (0.2-1.0) mg/dL AST 58 H (15-37) IU/L ALT 27 (14-63) IU/L Alkaline Phosphatase 104 (46-116) U/L Total Protein 7.6 (6.4-8.2) g/dL Albumin 3.8 (3.4-5.0) g/dL Globulin 3.8 (2.6-4.0) g/dL Albumin/Globulin Ratio 1.0 (0.9-1.6) Triglycerides (0-200) mg/dL Cholesterol (50-200) mg/dL HDL Cholesterol (40-60) mg/dL Cholesterol/HDL Ratio (3.3-6.0) Vitamin B12 (193-986) pg/mL Urine Color YELLOW Urine Appearance CLEAR Urine pH 6.0 (5.0-8.0) Ur Specific [place] <= 1.005 (1.001-1.035) Urine Protein NEGATIVE (NEGATIVE) mg/dL Urine Glucose (UA) NEGATIVE (NEGATIVE) mg/dL Urine Ketones NEGATIVE (NEGATIVE) mg/dL Urine Occult Blood SMALL H (NEGATIVE) Urine Nitrite NEGATIVE (NEGATIVE) Urine Bilirubin NEGATIVE (NEGATIVE) Urine Urobilinogen 0.2 (<2.0) EU/dL Ur Leukocyte Esterase NEGATIVE (NEGATIVE) Urine RBC 0-2 (0-2/HPF) Urine WBC 0-1 (0-5/HPF) Ur Epithelial Cells FEW (NONE-FEW) Urine Bacteria FEW (NEGATIVE) Med Orders - Current: Current Medications Acetaminophen (Acetaminophen 325 Mg Tab) 650 mg PO Q4H PRN PRN Reason: Pain (Mild 1-3)/fever Last Admin: 05/15/21 08:58 Dose: 650 mg Documented by: Hydrocodone Bitart/Acetaminophen (Acetaminophen/Hydrocodone 325-10 Mg Tab) 1 tab PO Q12HR PRN PRN Reason: Pain Albuterol/Ipratropium (Albuterol/Ipratropium 3.0-0.5 Mg/3 Ml Neb Soln) 3 ml NEB Q4HRRT PRN PRN Reason: Shortness Of Breath/wheezing Aspirin (Aspirin 81 Mg Tab.Chew) 81 mg PO DAILY [facility] Last Admin: 05/15/21 08:56 Dose: 81 mg Documented by: Atorvastatin Calcium (Atorvastatin 40 Mg Tab) 40 mg PO BEDTIME [facility] Last Admin: 05/14/21 21:57 Dose: 40 mg Documented by: Cyclobenzaprine HCl (Cyclobenzaprine 10 Mg Tab) 10 mg PO TID PRN PRN Reason: Pain Gabapentin (Gabapentin 300 Mg Cap) 600 mg PO BID PRN PRN Reason: Pain Labetalol HCl (Labetalol 100 Mg/20 Ml Mdv) 20 mg IVPUSH ONETIME PRN PRN Reason: Hypertension Ondansetron HCl (Ondansetron 4 Mg/2 Ml Sdv) 4 mg IVPUSH Q4H PRN PRN Reason: Nausea/Vomiting Diclofenac Sodium (100 Gm Tube) 1 each TOP QID PRN PRN Reason: Pain Desvenlafaxine Er] (50 Mg Tab.Er.24h) 1 each PO BEDTIME [facility] Sodium Chloride (Sodium Chloride 0.9% 10 Ml Syringe) 10 ml FLUSH ASDIRECTED PRN PRN Reason: Keep Vein Open Last Admin: 05/14/21 13:09 Dose: 10 ml Documented by: Sodium Chloride (Sodium Chloride 0.9% 2.5 Ml Syringe) 2.5 ml FLUSH ASDIRECTED PRN PRN Reason: Keep Vein Open Last Admin: 05/14/21 13:08 Dose: 2.5 ml Documented by: Sodium Chloride (Sodium Chloride 0.9% 10 Ml Sdv) 10 ml IV ASDIRECTED PRN PRN Reason: IV Use Discontinued Medications Hydrocodone Bitart/Acetaminophen (Acetaminophen/Hydrocodone 325-10 Mg Tab) 1 tab PO ONETIME ONE Stop: 05/14/21 14:35 Last Admin: 05/14/21 15:01 Dose: 1 tab Documented by: Cyclobenzaprine HCl (Cyclobenzaprine 10 Mg Tab) 10 mg PO ONETIME ONE Stop: 05/14/21 14:35 Last Admin: 05/14/21 15:00 Dose: 10 mg Documented by: Gabapentin (Gabapentin 300 Mg Cap) 300 mg PO ONETIME ONE Stop: 05/14/21 14:35 Last Admin: 05/14/21 17:07 Dose: 300 mg Documented by: Gadobenate Dimeglumine (Gadobenate Dimeglumine 529 Mg/Ml 20 Ml Sdv) 20 ml IVPUSH ONETIME STA Stop: 05/14/21 15:44 Last Admin: 05/14/21 15:47 Dose: 20 ml Documented by: Iopamidol (Iopamidol 755 Mg/Ml 500 Ml Multipack Bottle) 100 ml IVPUSH ONETIME STA Stop: 05/14/21 14:00 Last Admin: 05/14/21 14:00 Dose: 100 ml Documented by: Morphine Sulfate (Morphine 2 Mg/Ml Syringe) 1 mg IVPUSH ONETIME ONE Stop: 05/15/21 12:00 Last Admin: 05/15/21 12:24 Dose: 1 mg Documented by: Non-Formulary Medication (Desvenlafaxine [Desvenlafaxine Er]) 50 mg PO BEDTIME [facility] Non-Formulary Medication (Desvenlafaxine [Desvenlafaxine Er]) 0 mg PO BEDTIME [facility] Last Admin: 05/14/21 23:40 Dose: Not Given Documented by: - Exam General: Reports: Alert, Oriented HEENT: Reports: Pupils Equal Neck: Reports: Supple Lungs: Reports: Clear to Auscultation Cardiovascular: Reports: Regular Rate, Regular Rhythm GI/Abdominal Exam: Normal Bowel Sounds, Soft, Non-Tender Back Exam: Reports: Normal Inspection, Decreased Range of Motion, Muscle Spasm, Paraspinal Tenderness, Vertebral Tenderness. Denies: Full Range of Motion Extremities: Normal Inspection, Normal Range of Motion, No Pedal Edema. No: Wandy's Sign Skin: Reports: Warm, Dry Neurological: Reports: Normal Speech, Normal Tone, Strength Equal Bilateral, Reflexes Equal Bilateral, Cranial Nerves Intact
[2021-05-15] MEDS ORDERED: DESVENLAFAXINE 50 MG PO SCH (21:00)
--- NOTE | 2021-05-17 12:31 | ECHO ---
EXAM DATE: 05/14/21 PATIENT'S AGE: 50 The ECHO report has been scanned into [employer] and can be seen in this patient's EMR (Electronic Medical Record) under the REPORTS section. The report has also been scanned into PACS. BETHANY
== END 2021-05-15 14:00 | disposition home or self-care (01) ==
LOC: MW.ED 12:14 → MW.MS 14:49
PROVIDERS: ADMIT Student in an Organized Health Care Education/Training Program; ATTEND Student in an Organized Health Care Education/Training Program
DX: G45.9 Transient cerebral ischemic attack, unspecified (principal); I10 Essential (primary) hypertension; H53.2 Diplopia; J44.9 Chronic obstructive pulmonary disease, unspecified; E66.9 Obesity, unspecified; Z79.899 Other long term (current) drug therapy; Z87.891 Personal history of nicotine dependence; Z88.6 Allergy status to analgesic agent
CPT/HCPCS: 36415; 70450; 70496; 70498; 70553; 80053; 80061; 81001; 82607; 83036; 83735; 84100; 84443; 84484; 85025; 85610; 85730; 93005; 93306; 96374; 97112; 97161; 99285; A9270; A9577; G0378; J2270; Q9967

== ENCOUNTER 2023-08-26 13:34 | Emergency (ER) | payer MEDICARE, OTHER ==
[2023-08-26] MEDS ORDERED: Diphtheria,Pertussis(Acell),Tetanus Vaccine 0.5 ML Syringe IM ONE (13:42)
[2023-08-26] MEDS ORDERED: Bacitracin Oint 28.35 GM Tube TOP STA (14:19)
[2023-08-26 14:20] VITALS: BP 113/65; PULSE 76
== END 2023-08-26 15:47 | disposition home or self-care (01) ==
LOC: MW.ED 13:34
DX: S62.631A Displaced fracture of distal phalanx of left index finger, initial encounter for closed fracture (principal); S61.211A Laceration without foreign body of left index finger without damage to nail, initial encounter; Z23 Encounter for immunization; I10 Essential (primary) hypertension; J44.9 Chronic obstructive pulmonary disease, unspecified; E66.9 Obesity, unspecified; Z90.49 Acquired absence of other specified parts of digestive tract; W27.2XXA Contact with scissors, initial encounter
CPT/HCPCS: 73140; 90471; 90715; 99283; A9270

== ENCOUNTER 2024-06-21 21:53 | Inpatient (IN) | payer MEDICARE, OTHER ==
[2024-06-21] MEDS: Sodium Chloride 0.9% 1,000 ML IV ONE ×2 (22:19→23:44)
[2024-06-21 22:26] LABS: BASE EXCESS VENOUS 8.6 (-2.0-3.0); BASOPHILS ABSOLUTE AUTO 0.09 K/uL (0.00-0.20); BASOPHILS PERCENT AUTO 0.7 % (0.0-1.0); EOSINOPHILS ABSOLUTE AUTO 0.08 K/uL (0.00-0.45); EOSINOPHILS PERCENT AUTO 0.6 % (0.0-6.0); HEMATOCRIT 34.8 % (37.0-47.0); HEMOGLOBIN 12.1 g/dL (12.0-16.0); IMMATURE GRAN ABSOLUTE AUTO 0.11 K/uL (0.00-0.05); IMMATURE GRAN PERCENT AUTO 0.9 % (0.0-0.4); LYMPHOCYTES PERCENT AUTO 10.3 % (24.0-44.0); MEAN CORPUSCULAR HEMOGLOBIN 30.3 pg (28.0-32.0); MEAN CORPUSCULAR HGB CONC 34.8 g/dL (32.0-36.0); MEAN CORPUSCULAR VOLUME 87.2 fL (83.0-99.0); MEAN PLATELET VOLUME 8.3 fL (9.4-12.3); MONOCYTES ABSOLUTE AUTO 0.83 K/uL (0.00-0.80); MONOCYTES PERCENT AUTO 6.6 % (0.0-8.0); NEUTROPHILS ABSOLUTE AUTO 10.17 K/uL (1.80-7.70); NEUTROPHILS PERCENT AUTO 80.9 % (41.0-71.0); PH,VENOUS 7.49 (7.31-7.41); PLATELET COUNT,PLT 414 K/uL (150-400); RED BLOOD CELL COUNT 3.99 M/uL (4.10-5.30); WHITE BLOOD CELL COUNT,WBC 12.58 K/uL (3.9-11.3)
[2024-06-21 22:57] LABS: A/G RATIO 0.9 (0.9-1.6); ALBUMIN 3.7 g/dL (3.4-5.0); BILIRUBIN TOTAL 0.4 mg/dL (0.2-1.0); CALCIUM 10.7 mg/dL (8.5-10.1); CARBON DIOXIDE,CO2 33.6 mmol/L (21.0-32.0); CREATININE 1.5 mg/dL (0.6-1.0); EST CRCL DRUG DOSING (CG) 38.13 mL/min
[2024-06-21 23:01] LABS: POTASSIUM,K 2.4 mmol/L (3.5-5.1)
[2024-06-21] MEDS ORDERED: Glucagon,Human Recombinant 1 MG Vial IM PRN (23:33)
[2024-06-21] MEDS ORDERED: 50% Dextrose in Water 50 ML Syringe IVPUSH PRN (23:33)
[2024-06-21] MEDS: Potassium Chloride 20 MEQ Tab.ER PO ONE (23:44)
[2024-06-21] MEDS: Insulin Regular, Human 100 Units/ML 10 ML Vial SUBCUT ONE (23:46)
[2024-06-22 00:11] LABS: APPEARANCE,URINE CLEAR; BILIRUBIN,URINE NEGATIVE (NEGATIVE); COLOR,URINE YELLOW; GLUCOSE,URINE 250 mg/dL (NEGATIVE); KETONES,URINE NEGATIVE (NEGATIVE); LEUKOCYTE ESTERASE,URINE NEGATIVE (NEGATIVE); NITRITE,URINE NEGATIVE (NEGATIVE); OCCULT BLOOD,URINE SMALL (NEGATIVE); PH,URINE 6.5 (5.0-8.0); PROTEIN,URINE NEGATIVE (NEGATIVE); UROBILINOGEN,URINE 0.2 EU/dL (<2.0)
[2024-06-22 00:19] LABS: BACTERIA,URINE RARE (NEGATIVE); EPITHELIAL CELLS,URINE FEW (NONE-FEW); WBC,URINE 0-2 (0-5/HPF)
[2024-06-22] MEDS ORDERED: 50% Dextrose in Water 50 ML Syringe IVPUSH PRN (00:21)
[2024-06-22] MEDS ORDERED: Glucagon,Human Recombinant 1 MG Vial IM PRN (00:21)
[2024-06-22] MEDS: Insulin Aspart 100 Units/ML 3 ML Pen SUBCUT SCH (00:46)
[2024-06-22] MEDS: Sodium Chloride 0.9% 1,000 ML IV ONE (00:47)
[2024-06-22] MEDS: Potassium Chloride 20 MEQ Tab.ER PO ONE ×3 (00:47→18:58)
[2024-06-22 06:09] LABS: BASOPHILS PERCENT AUTO 0.9 % (0.0-1.0); EOSINOPHILS ABSOLUTE AUTO 0.14 K/uL (0.00-0.45); EOSINOPHILS PERCENT AUTO 1.3 % (0.0-6.0); HEMATOCRIT 32.8 % (37.0-47.0); HEMOGLOBIN 11.5 g/dL (12.0-16.0); IMMATURE GRAN ABSOLUTE AUTO 0.11 K/uL (0.00-0.05); LYMPHOCYTES ABSOLUTE AUTO 1.43 K/uL (1.00-4.80); LYMPHOCYTES PERCENT AUTO 13.4 % (24.0-44.0); MEAN CORPUSCULAR HEMOGLOBIN 30.7 pg (28.0-32.0); MEAN CORPUSCULAR HGB CONC 35.1 g/dL (32.0-36.0); MEAN CORPUSCULAR VOLUME 87.5 fL (83.0-99.0); MEAN PLATELET VOLUME 8.2 fL (9.4-12.3); MONOCYTES ABSOLUTE AUTO 0.91 K/uL (0.00-0.80); MONOCYTES PERCENT AUTO 8.5 % (0.0-8.0); NEUTROPHILS ABSOLUTE AUTO 7.98 K/uL (1.80-7.70); NEUTROPHILS PERCENT AUTO 74.9 % (41.0-71.0); PLATELET COUNT,PLT 357 K/uL (150-400); RED BLOOD CELL COUNT 3.75 M/uL (4.10-5.30); WHITE BLOOD CELL COUNT,WBC 10.67 K/uL (3.9-11.3)
[2024-06-22 07:33] LABS: CALCIUM 9.9 mg/dL (8.5-10.1); CARBON DIOXIDE,CO2 33.7 mmol/L (21.0-32.0); CREATININE 1.1 mg/dL (0.6-1.0)
[2024-06-22 07:48] LABS: POTASSIUM,K 2.6 mmol/L (3.5-5.1)
[2024-06-22 09:47] LABS: HEMOGLOBIN A1C 7.9 %
[2024-06-22 13:21] LABS: CALCIUM 9.5 mg/dL (8.5-10.1); CARBON DIOXIDE,CO2 29.8 mmol/L (21.0-32.0); CREATININE 1.1 mg/dL (0.6-1.0); POTASSIUM,K 2.9 mmol/L (3.5-5.1)
[2024-06-22] MEDS: Spironolactone 25 MG Tab PO SCH (18:59)
[2024-06-22] MEDS: Desvenlafaxine Succinate 25 MG TAB.ER PO SCH (19:41)
[2024-06-22] MEDS: Metoprolol Tartrate 50 MG Tab PO SCH (20:39)
[2024-06-22] MEDS: atorvaSTATin 40 MG Tab PO SCH (20:40)
[2024-06-22] MEDS: Acetaminophen/HYDROcodone 325-10 MG Tab PO PRN (20:48)
[2024-06-22] MEDS: Polyethylene Glycol 3350 Powder 17 GM Packet PO PRN (20:49)
[2024-06-22] MEDS: DESVENLAFAXINE SUCCINATE 100 MG PO ONE (22:15)
[2024-06-23 05:58] LABS: BASOPHILS ABSOLUTE AUTO 0.08 K/uL (0.00-0.20); BASOPHILS PERCENT AUTO 0.8 % (0.0-1.0); EOSINOPHILS ABSOLUTE AUTO 0.16 K/uL (0.00-0.45); EOSINOPHILS PERCENT AUTO 1.7 % (0.0-6.0); HEMATOCRIT 34.4 % (37.0-47.0); HEMOGLOBIN 11.4 g/dL (12.0-16.0); IMMATURE GRAN ABSOLUTE AUTO 0.09 K/uL (0.00-0.05); LYMPHOCYTES ABSOLUTE AUTO 1.27 K/uL (1.00-4.80); LYMPHOCYTES PERCENT AUTO 13.4 % (24.0-44.0); MEAN CORPUSCULAR HEMOGLOBIN 29.8 pg (28.0-32.0); MEAN CORPUSCULAR HGB CONC 33.1 g/dL (32.0-36.0); MEAN CORPUSCULAR VOLUME 90.1 fL (83.0-99.0); MEAN PLATELET VOLUME 8.5 fL (9.4-12.3); MONOCYTES ABSOLUTE AUTO 0.75 K/uL (0.00-0.80); MONOCYTES PERCENT AUTO 7.9 % (0.0-8.0); NEUTROPHILS ABSOLUTE AUTO 7.12 K/uL (1.80-7.70); NEUTROPHILS PERCENT AUTO 75.2 % (41.0-71.0); PLATELET COUNT,PLT 373 K/uL (150-400); RED BLOOD CELL COUNT 3.82 M/uL (4.10-5.30); WHITE BLOOD CELL COUNT,WBC 9.47 K/uL (3.9-11.3)
[2024-06-23 06:47] LABS: A/G RATIO 0.8 (0.9-1.6); ALBUMIN 3.1 g/dL (3.4-5.0); BILIRUBIN TOTAL 0.3 mg/dL (0.2-1.0); CALCIUM 9.3 mg/dL (8.5-10.1); CARBON DIOXIDE,CO2 30.8 mmol/L (21.0-32.0); CREATININE 0.8 mg/dL (0.6-1.0); EST CRCL DRUG DOSING (CG) 71.5 mL/min; POTASSIUM,K 3.6 mmol/L (3.5-5.1)
[2024-06-23 08:03] VITALS: PULSE 80
[2024-06-23 08:41] VITALS: BP 127/62
[2024-06-23] MEDS ORDERED: DESVENLAFAXINE 25 MG PO SCH (09:00)
[2024-06-23] MEDS ORDERED: DESVENLAFAXINE SUCCINATE 100 MG PO SCH (09:00)
[2024-06-23] MEDS: Furosemide 40 MG/4 ML VIAL IVPUSH ONE (11:07)
== END 2024-06-23 15:00 | disposition home or self-care (01) | DRG 683 ==
LOC: MW.ED 21:53 → MW.MS 23:39
PROVIDERS: ADMIT Family Medicine; ATTEND Family Medicine
DX: N17.9 Acute kidney failure, unspecified (principal); E87.1 Hypo-osmolality and hyponatremia; Z68.41 Body mass index [BMI] 40.0-44.9, adult; E11.65 Type 2 diabetes mellitus with hyperglycemia; E87.6 Hypokalemia; G89.29 Other chronic pain; I10 Essential (primary) hypertension; J44.9 Chronic obstructive pulmonary disease, unspecified; E66.9 Obesity, unspecified; F41.9 Anxiety disorder, unspecified; F32.A Depression, unspecified; Z75.8 Other problems related to medical facilities and other health care; Z68.39 Body mass index [BMI] 39.0-39.9, adult; M19.90 Unspecified osteoarthritis, unspecified site; E78.00 Pure hypercholesterolemia, unspecified; M54.9 Dorsalgia, unspecified; M54.2 Cervicalgia; Z98.1 Arthrodesis status; Z79.4 Long term (current) use of insulin; Z88.5 Allergy status to narcotic agent; Z79.82 Long term (current) use of aspirin; Z90.49 Acquired absence of other specified parts of digestive tract; Z86.010 Personal history of colon polyps; Z79.899 Other long term (current) drug therapy; Z98.890 Other specified postprocedural states
CPT/HCPCS: 36415; 80053; 82009; 82803; 83735; 85025; 96360; 99285; J7030; 80048; 81001; 82947; 83036; 93005; 93010; A9270-GY; J1815-GY; J1940